=== PATIENT | male | born 1975 | race Caucasian/White ===

== ENCOUNTER 2020-01-26 14:51 | Inpatient (IN) | payer OTHER ==
--- NOTE | 2020-01-26 15:44 | BHS.RME ---
Substance Use & Tx History - Substance Use History Alcohol Substance amount: 1 liter Frequency of use: Daily Substance route: Oral Date of Last Use: 01/26/20 - Last Treatment Date of last treatment: About 10 years ago Where was last treatment: Detox Physical/Psych/Mental Status - Behavior General Behavior: Increased activity (restlessness, agitation) Eye Contact: Normal Other Behaviors: Mannerisms - Cooperativeness Cooperativeness: Cooperative - Thinking Thought Processes: Tight Thought content: Future oriented - Physical Health Problems Is patient presently having any pain?: Yes Does patient presently have any injuries (include location): Yes (broken tibia 2 weeks ago) Does patient currently have a fever: No CIWA Nausea/Vomitin-Mild Nausea/No Vomiting Muscle Tremors: 2 Anxiety: 3 Agitation: 3 Paroxysmal Sweats: 2 Orientation: 0-Oriented Tacttile Disturbances: 2-Mild Itch/Numbness/Burn Auditory Disturbances: 2-Mild Harshness/Frighten Visual Disturbances: 0-None Headache: 2-Mild CIWA-Ar Total Score: 17
--- NOTE | 2020-01-26 15:49 | HP ---
CIWA Score Nausea/Vomitin-Mild Nausea/No Vomiting Muscle Tremors: 2 Anxiety: 3 Agitation: 3 Paroxysmal Sweats: 2 Orientation: 0-Oriented Tacttile Disturbances: 2-Mild Itch/Numbness/Burn Auditory Disturbances: 2-Mild Harshness/Frighten Visual Disturbances: 0-None Headache: 2-Mild CIWA-Ar Total Score: 17 - Admission Criteria OASAS Guidelines: Admission for Medically Managed Detox: Requires at least one of the followin. CIWA greater than 12 2. Seizures within the past 24 hours 3. Delirium tremens within the past 24 hours 4. Hallucinations within the past 24 hours 5. Acute intervention needed for co occurring medical disorder 6. Acute intervention needed for co occurring psychiatric disorder 7. Severe withdrawal that cannot be handled at a lower level of care (continued vomiting, continued diarrhea, abnormal vital signs) requiring intravenous medication and/or fluids 8. Patient presents the following: CIWA greater than 12 Admission Criteria Met: Admission criteria met Admission ROS S - [facility] Chief Complaint: I am withdrawing from alcohol Allergies/Adverse Reactions: Allergies Allergy/AdvReac Type Severity Reaction Status Date / Time No Known Allergies Allergy Verified 01/26/20 17:57 History of Present Illness: 44 year old man presents for detox from alcohol. He reports last detox was about 10 years ago. He recently fell and broke his fibula, he has a soft cast on, he reports NWB status but he came in walking and bearing weight because he left his crutches at home. He was supposed to follow up with ortho at [facility] yesterday but he missed the appointment He has moderate pain in the limb Exam Limitations: No Limitations - Ebola screening Have you traveled outside of the country in the last 21 days: No Have you had contact with anyone from an Ebola affected area: No Have you been sick,other than usual withdrawal symptoms: No Do you have a fever: No - Review of Systems Constitutional: No Symptoms Reported EENT: reports: No Symptoms Reported Respiratory: reports: No Symptoms reported Cardiac: reports: No Symptoms Reported GI: reports: Nausea, Abdominal cramping : reports: No Symptoms Reported Musculoskeletal: reports: Back Pain, Joint Pain, Muscle Weakness Integumentary: reports: Rash Neuro: reports: Headache, Numbness, Weakness Endocrine: reports: No Symptoms Reported Hematology: reports: No Symptoms Reported Psychiatric: reports: No Sypmtoms Reported Other Systems: Reviewed and Negative Patient History - Patient Medical History Hx Anemia: No Hx Asthma: No Hx Chronic Obstructive Pulmonary Disease (COPD): No Hx Cancer: No Hx Cardiac Disorders: No Hx Congestive Heart Failure: No Hx Hypertension: No Hx Hypercholesterolemia: No Hx Pacemaker: No HX Cerebrovascular Accident: No Hx Seizures: Yes (20 years ago) Hx Dementia: No Hx Diabetes: No Hx Gastrointestinal Disorders: No Hx Liver Disease: No Hx Genitourinary Disorders: No Hx Sexually Transmitted Disorders: No Hx Renal Disease (ESRD): No Hx Thyroid Disease: No Hx Human Immunodeficiency Virus (HIV): No Hx Hepatitis C: No Hx Depression: No Hx Suicide Attempt: No Hx Bipolar Disorder: No Hx Schizophrenia: No - Patient Surgical History Past Surgical History: Yes Hx Orthopedic Surgery: Yes (LLE 2 weeks ago) Anesthesia Reaction: No - PPD History Previous Implant?: No Implanted On Prior [facility] Admission?: No PPD to be Administered?: Yes - Smoking Cessation Smoking history: Current every day smoker Have you smoked in the past 12 months: Yes Aproximately how many cigarettes per day: 2 Cigars Per Day: 0 Hx Chewing Tobacco Use: No Initiated information on smoking cessation: Yes 'Breaking Loose' booklet given: 01/26/20 - Substances abused Alcohol Substance route: Oral Frequency: Daily Amount used: 1 liter of vodka Age of first use: 11 Date of last use: 01/26/20 Heroin Substance route: Inhalation Amount used: 2-3 bags/day Age of first use: 34 Date of last use: 01/24/20 Admission Physical Exam BHS - Physical General Appearance: Yes: Disheveled, Alcohol on Breath, Irritable, Sweating HEENTM: Yes: Normocephalic, MAGGIE, Pharynx Normal Respiratory: Yes: Chest Non-Tender, Lungs Clear, Normal Breath Sounds, No Respiratory Distress, No Accessory Muscle Use Neck: Yes: No masses,lesions,Nodules, Supple Breast: Yes: Breast Exam Deferred Cardiology: Yes: Tachycardia Abdominal: Yes: Normal Bowel Sounds Genitourinary: Yes: Within Normal Limits Back: Yes: Normal Inspection Musculoskeletal: Yes: Back pain, Joint Stiffness, Muscle weakness Extremities: Yes: Other (tibia fx) Neurological: Yes: Alert, Normal Response Integumentary: Yes: Rash (diffuse on trunk) - Diagnostic (1) Alcohol dependence, uncomplicated Current Visit: Yes Status: Acute (2) Left fibular fracture Current Visit: Yes Status: Acute Cleared for Admission [facility] - Detox or Rehab [facility] Level of Care: Medically Managed Detox Regimen/Protocol: Librium Claeared for Rehab Admission: No Breathalyzer - Breathalyzer Breathalyzer: 0.199 Urine Drug Screen - Test Device Lot number: [id number] Expiration date: 09/11/21 - Control Is test valid?: Yes - Results Drug screen NEGATIVE: Yes Inpatient Rehab Admission - Rehab Decision to Admit Inpatient rehab admission?: No
[2020-01-26] MEDS ORDERED: METHOCARBAMOL 500 MG TABLET PO PRN (16:09)
[2020-01-26] MEDS ORDERED: MAGNESIUM CITRATE 300 ML BOTTLE PO PRN (16:09)
[2020-01-26] MEDS ORDERED: BISMUTH SUBSALICYLATE 524 MG/30 ML UD PO PRN (16:09)
[2020-01-26] MEDS ORDERED: ACETAMINOPHEN 325 MG TABLET (FP) PO PRN ×2 (16:09)
[2020-01-26] MEDS ORDERED: NICOTINE POLACRILEX 2 MG GUM BUC PRN (16:09)
[2020-01-26] MEDS ORDERED: ONDANSETRON *ODT* 4 MG TABLET SL ONE (16:09)
[2020-01-26] MEDS ORDERED: MAGNESIUM HYDROX 2400MG/30ML ORAL SUSPENSION 30 ML CUP PO PRN (16:09)
[2020-01-26] MEDS ORDERED: chlordiazePOXIDE HCL 10 MG CAPSULE PO PRN (16:09)
[2020-01-26] MEDS ORDERED: MENTHOL/PHENOL 1 EACH UD MM PRN (16:09)
[2020-01-26] MEDS ORDERED: MAG HYDROX/AL HYDROX/SIMETH 30 ML UNIT-DOSE CUP PO PRN (16:09)
[2020-01-26] MEDS ORDERED: IBUPROFEN 400 MG TABLET (FP) PO PRN (16:09)
--- NOTE | 2020-01-26 16:57 | PN ---
[facility] Progress Note Note: Patient presented for alcohol detox, while waiting to go to the unit, he had several episodes of starring spells and tremors, he did not lose consciousness, but he kept going in and out. Patient has a soft cast on the left leg which he reports was placed 2 weeks ago when he broke his fibula, was supposed to follow up at [facility] yesterday but he missed his appointment. PE VS BP 123/67 HR 133 RR 20 Mental status: He is alert and responsive but occasionally requires stimulation to respond Lungs clear in all mary CVS: Tachycardia, irregular Skin: Diffuse rash to whole body Ext: LLE soft cast A/P Alcohol intoxication with seizure-ED for further Tachycardia-EKG done, transfer to ED for further evaluation
[2020-01-26 17:10] VITALS: BP 123/67; PULSE 133; TEMP 97.3; BMI 36.4
[2020-01-26] MEDS ORDERED: hydrOXYzine PAMOATE 25 MG CAPSULE (FP) PO SCH (18:00)
[2020-01-26] MEDS ORDERED: chlordiazePOXIDE HCL 25 MG CAPSULE PO SCH (21:00)
[2020-01-26] MEDS ORDERED: THIAMINE HCL 100 MG TABLET (FP) PO SCH (22:00)
[2020-01-26] MEDS ORDERED: COLLOIDAL OATMEAL 1 EACH PACKET TP SCH (22:00)
[2020-01-26] MEDS ORDERED: MELATONIN 5 MG TABLETS PO SCH (22:00)
[2020-01-27] MEDS ORDERED: PRENATAL VITAMINS W/ FOLIC ACID TABLET (FP) PO SCH (10:00)
--- NOTE | 2020-01-27 12:20 | DS ---
[facility] Detox Discharge Summary Admission Date: 01/26/20 Discharge Date: 01/27/20 - History Present History: Alcohol Dependence Additional Comments: 44 years old male was admitted on 01/26/20 for alcohol withdrawal sx management treating with librium detox regiment transferred to ER for seizure admitted to telemetry for tachycardia Vital Signs - 24 hr 01/26/20 16:50 Temperature 97.3 F L Pulse Rate 133 H Respiratory 20 Rate Blood Pressure 123/67 Pertinent Past History: time for discharge 44 minutes based on chart reviewed blog writer has not seen nor evaluated mr arteaga - Physical Exam Results Vital Signs: Vital Signs Temperature 97.3 F L 01/26/20 16:50 Pulse Rate 133 H 01/26/20 16:50 Respiratory Rate 20 01/26/20 16:50 Blood Pressure 123/67 01/26/20 16:50 O2 Sat by Pulse Oximetry (%) Pertinent Admission Physical Exam Findings: alcohol withdrawal - Treatment Hospital Course: Detox Protocol Followed Patient has Accepted a Rehab Referral to: telemetry unit - Medication Discharge Medications: Ambulatory Orders NK [No Known Home Medication] 01/26/20 - Diagnosis (1) Alcohol dependence, uncomplicated Status: Acute (2) Seizure Status: Acute - AMA Did Patient Leave Against Medical Advice: No
[2020-01-28] MEDS ORDERED: chlordiazePOXIDE 5 MG CAPSULE PO SCH (05:00)
--- NOTE | 2020-01-28 18:28 | EKG ---
Test Reason : Blood Pressure : / mmHG Vent. Rate : 119 BPM Atrial Rate : 119 BPM P-R Int : 154 ms QRS Dur : 098 ms QT Int : 320 ms P-R-T Axes : 072 040 034 degrees QTc Int : 450 ms SINUS TACHYCARDIA POSSIBLE LEFT ATRIAL ENLARGEMENT INCOMPLETE RIGHT BUNDLE BRANCH BLOCK INFERIOR INFARCT , AGE UNDETERMINED ABNORMAL ECG NO PREVIOUS ECGS AVAILABLE Confirmed by LOU CHAO MD ([id number]) on 01/28/2020 6:27:39 PM Referred By: Confirmed By:LOU CHAO MD
[2020-01-29] MEDS ORDERED: chlordiazePOXIDE HCL 10 MG CAPSULE PO PRN
[2020-01-29] MEDS ORDERED: chlordiazePOXIDE HCL 10 MG CAPSULE PO SCH (05:00)
[2020-01-30] MEDS ORDERED: chlordiazePOXIDE HCL 10 MG CAPSULE PO ONE (05:00)
== END 2020-01-27 08:20 | disposition short-term general hospital (02) | DRG 773 ==
LOC: YASAS 14:51 → Y3N 17:18
PROVIDERS: ADMIT Allergy & Immunology; ATTEND Allergy & Immunology
PROC: HZ2ZZZZ Detoxification Services for Substance Abuse Treatment (ICD-10-PCS; principal; 2020-01-26)
DX: F10.230 Alcohol dependence with withdrawal, uncomplicated (principal); F11.20 Opioid dependence, uncomplicated; F17.210 Nicotine dependence, cigarettes, uncomplicated; R00.0 Tachycardia, unspecified; R56.9 Unspecified convulsions; R21 Rash and other nonspecific skin eruption; M54.89 Other dorsalgia; S82.402D Unspecified fracture of shaft of left fibula, subsequent encounter for closed fracture with routine healing; W19.XXXD Unspecified fall, subsequent encounter
CPT/HCPCS: 93005; 93010

== ENCOUNTER 2020-01-26 17:09 | Inpatient (IN) | payer OTHER ==
[2020-01-26 17:57] VITALS: BMI 36.6
[2020-01-26] MEDS ORDERED: diazePAM CARPU-JECT 10 MG/2 ML DISP.SYRIN IVPUSH ONE ×4 (17:59→22:33)
[2020-01-26] MEDS ORDERED: diazePAM CARPU-JECT 10 MG/2 ML DISP.SYRIN ONE ×2 (19:24→20:52)
[2020-01-26 19:35] LABS: BASO % 0.7 % (0-2.0); EOS % 0.4 % (0-4.5); HEMATOCRIT 43.6 % (35.4-49); HEMOGLOBIN 14.7 GM/dL (11.7-16.9); LYMPH % 24.5 % (8-40); MCH 30.5 pg (25.7-33.7); MCHC 33.8 g/dl (32.0-35.9); MEAN CELL VOLUME 90.3 fl (80-96); MEAN PLT VOLUME 7.5 fl (7.5-11.1); MONO % 7.6 % (3.8-10.2); NEUT % 66.8 % (42.8-82.8); PLATELET COUNT 343 K/MM3 (134-434); RBC 4.83 M/mm3 (4.00-5.60); RDW 13.4 % (11.9-15.9); WHITE BLOOD COUNT 10.3 K/mm3 (4.0-10.0)
[2020-01-26 19:58] LABS: ALBUMIN 3.7 g/dl (3.4-5.0); ALK PHOS 78 U/L (45-117); ANION GAP 10 MMOL/L (8-16); BILIRUBIN,TOTAL 0.4 mg/dL (0.2-1); BLOOD UREA NITROGEN 9.6 mg/dL (7-18); CALCIUM 8.6 mg/dL (8.5-10.1); CHLORIDE 105 mmol/L (98-107); CO2 25 mmol/L (21-32); CREATININE 0.9 mg/dL (0.55-1.3); GLUCOSE,RANDOM 87 mg/dL (74-106); SGOT/AST 86 U/L (15-37); SGPT/ALT 104 U/L (13-61); SODIUM 140 mmol/L (136-145); TOT PROT 7.2 g/dl (6.4-8.2)
[2020-01-26 20:35] LABS: URINE APPEARANCE CLEAR; URINE BILIRUBIN NEGATIVE (NEGATIVE); URINE COLOR YELLOW; URINE GLUCOSE (UA) TRACE (NEGATIVE); URINE KETONE NEGATIVE (NEGATIVE); URINE LEUK ESTERASE NEGATIVE (NEGATIVE); URINE NITRITE NEGATIVE (NEGATIVE); URINE PROTEIN NEGATIVE (NEGATIVE); URINE UROBILINOGEN 0.2 mg/dL (0.2-1.0)
[2020-01-26 20:45] LABS: COCAINE, UR NEGATIVE ng/ml (CUTOFF=300); METHADONE, UR NEGATIVE ng/ml (CUTOFF=300); OPIATES, URI NEGATIVE ng/ml (CUTOFF=300); PHENCYCLIDINE,URINE NEGATIVE ng/ml (CUTOFF=25); URINE AMPHETAMINES NEGATIVE ng/ml (CUTOFF=500); URINE BARBITURATES NEGATIVE ng/ml (CUTOFF=200); URINE BENZODIAZEPINES NEGATIVE ng/ml (CUTOFF=200)
--- NOTE | 2020-01-26 20:47 | PDOC ---
History of Present Illness - General Chief Complaint: Seizure Stated Complaint: SEIZURE Time Seen by Provider: 01/26/20 18:04 - History of Present Illness Initial Comments: 01/26/20 20:35 44 [facility]. Patient checked in on [facility], had a seizure episode. When the EMS arrived, he was not seizured anymore. Patient admitted to drink this morning, and yesterday heavily. Had a hx of withdraw and seizure. Admitted to use cocaine 3 days ago. Patient denies F/C/N/V/ chest pain, abdominal pain. He denies fall/trauma/LOC. A few weeks ago, he buckled his knee, had a fall, and broke his food. Went to the [facility] ED, and had a cast on his left foot. PCP: none ALlergy: none Med: none PSH: none PMH: alcohol dependent. ROS GENERAL/CONSTITUTIONAL: No fever or chills. No weakness. HEAD, EYES, EARS, NOSE AND THROAT: No change in vision. No ear pain or discharge. No sore throat. CARDIOVASCULAR: No chest pain or shortness of breath RESPIRATORY: No cough, wheezing, or hemoptysis. GASTROINTESTINAL: No nausea, vomiting, diarrhea or constipation. GENITOURINARY: No dysuria, frequency, or change in urination. MUSCULOSKELETAL: No joint or muscle swelling or pain. No neck or back pain. SKIN: No rash NEUROLOGIC: No headache, vertigo, loss of consciousness, or change in strength/sensation. ENDOCRINE: No increased thirst. No abnormal weight change HEMATOLOGIC/LYMPHATIC: No anemia, easy bleeding, or history of blood clots. ALLERGIC/IMMUNOLOGIC: No hives or skin allergy. PE. tachycardic of 124 GENERAL: Awake, alert, and fully oriented, in no acute distress, obese. HEAD: No signs of trauma, normocephalic, atraumatic EYES: PERRLA, EOMI, sclera anicteric, conjunctiva clear ENT: Auricles normal inspection, hearing grossly normal, nares patent, oropharynx clear without exudates. Moist mucosa, tongue fasciculation. NECK: Normal ROM, supple, no lymphadenopathy, JVD, or masses LUNGS: No distress, speaks full sentences, clear to auscultation bilaterally HEART: Regular rate and rhythm, normal S1 and S2, no murmurs, rubs or gallops, peripheral pulses normal and equal bilaterally. ABDOMEN: Soft, nontender,protrubing but nondistended. normoactive bowel sounds. No guarding, no rebound. No masses EXTREMITIES : Normal inspection, Normal range of motion, no edema. No clubbing or cyanosis. had a left wet cast on . extremiites trembling. NEUROLOGICAL: Cranial nerves II through XII grossly intact. Normal speech, normal gait, no focal sensorimotor deficits SKIN: Warm, Dry, normal turgor, no rashes or lesions noted MDM concerning for alcohol withdraw ( tongue fasciculation, trembling) W/U: blood work , cbc, cmp. ekg. - EKG: vent rate 119, QTc 450, sinus tachycardia, Twave inversion on III, incomplete RBBB, not concerning for [place]. TX: - IV diazepam (valium )5, diazepam (valium) 10. zofran ( QTc 450), 20 Valium. - CAT scan of the head, and neck. - reassess -CBC normal , CMP showed elevated liver enzymes, Utox is negative, alcohol level 138. -AFter 20 valium, patient still had withdraw ( nausea, tachycardic, trembling)----> uncontrolled EthOh withdraw---> consult ICU attending---> he came down to assess---> decline----> mbmd sent to hospitalist---> plan to admit to telemetry. 01/26/20 22:00 01/26/20 22:11 01/26/20 22:15 01/26/20 22:16 01/26/20 23:24 Past History - Medical History Allergies/Adverse Reactions: Allergies Allergy/AdvReac Type Severity Reaction Status Date / Time No Known Allergies Allergy Verified 01/26/20 17:57 Home Medications: Ambulatory Orders NK [No Known Home Medication] 01/26/20 Anemia: No Asthma: No Cancer: No Cardiac Disorders: No CVA: No COPD: No CHF: No Dementia: No Diabetes: No GI Disorders: No Disorders: No HTN: No Hypercholesterolemia: No Liver Disease: No Seizures: Yes (20 years ago) Thyroid Disease: No - Surgical History Orthopedic Surgery: Yes (LLE 2 weeks ago) - Psycho-Social/Smoking History Smoking History: Current every day smoker Have you smoked in the past 12 months: Yes Number of Cigarettes Smoked Daily: 2 Cigars Per Day: 0 Information on smoking cessation initiated: No - Substance Abuse Hx (Audit-C & DAST Scrn) How often the patient has a drink containing alcohol: 4 0r more times/wk Number of drinks the patient has on a typical day: 10 or more How often the patient has six or more drinks on one occasion: Daily or almost daily Score: In Men: 4 or > Positive; In Women: 3 or > Positive: 12 Screen Result (Pos requires Nsg. Audit-10AR): Positive In the last yr the pt used illegal drug/Rx for NonMed reason: Yes Score: Yes response is considered Positive: 1 Screen Result (Positive result requires Nsg. DAST-10): Positive *Physical Exam - Vital Signs Last Vital Signs Temp Pulse Resp BP Pulse Ox 98.4 F 124 H 20 141/83 99 01/26/20 17:10 01/26/20 19:50 01/26/20 19:50 01/26/20 19:50 01/26/20 19:50 ED Treatment Course - LABORATORY CBC & Chemistry Diagram: 01/26/20 19:02 01/26/20 19:02 - ADDITIONAL ORDERS Additional order review: Laboratory Results 01/26/20 19:02 Sodium 140 Potassium 4.0 Chloride 105 Carbon Dioxide 25 Anion Gap 10 BUN 9.6 Creatinine 0.9 Est GFR (CKD-EPI)AfAm 119.13 Est GFR (CKD-EPI)NonAf 102.79 Random Glucose 87 Calcium 8.6 Total Bilirubin 0.4 AST 86 H ALT 104 H Alkaline Phosphatase 78 Creatine Kinase 383 H Creatine Kinase Index 1.2 CK-MB (CK-2) 4.8 H Troponin I < 0.02 Total Protein 7.2 Albumin 3.7 Alcohol, Quantitative 135.6 H 01/26/20 19:02 RBC 4.83 MCV 90.3 MCHC 33.8 RDW 13.4 MPV 7.5 Neutrophils % 66.8 Lymphocytes % 24.5 Monocytes % 7.6 Eosinophils % 0.4 Basophils % 0.7 - Medications Given in the ED: ED Medications Discontinued Medications Generic Name Dose Route Start Last Admin Trade Name Freq PRN Reason Stop Dose Admin Diazepam 5 mg 01/26/20 17:59 01/26/20 19:36 Valium Injection - IVPUSH 01/26/20 18:00 5 mg ONCE ONE Administration Diazepam 10 mg 01/26/20 19:03 01/26/20 19:38 Valium Injection - IVPUSH 01/26/20 19:04 Not Given ONCE ONE Discharge - Discharge Information Problems reviewed: Yes Clinical Impression/Diagnosis: Alcohol dependence, uncomplicated, Seizure Condition: Fair - Admission Yes - Follow up/Referral - Patient Discharge Instructions - Post Discharge Activity
[2020-01-26] MEDS ORDERED: ONDANSETRON 4 MG/2 ML VIAL IVPUSH ONE (21:28)
--- NOTE | 2020-01-26 21:46 | PDOC ---
Documentation entered by Karla Waddell SCRIBE, acting as scribe for Gabriela Royal MD. Gabriela Royal MD: This documentation has been prepared by the Bairon erazo Sydney, SCRIBE, under my direction and personally reviewed by me in its entirety. I confirm that the documentation accurately reflects all work, treatment, procedures, and medical decision making performed by me. Attending Attestation - Resident Resident Name: FayJusto - ED Attending Attestation I have performed the following: I have examined & evaluated the patient, The case was reviewed & discussed with the resident, I agree w/resident's findings & plan, Exceptions are as noted - HPI HPI: 01/26/20 20:58 Patient is a 44 male with a significant past medical history of EtOH abuse, seizures who presents to the ED BIBA s/p seizure. Patient endorses he had been drinking heavily yesterday and when he checked into [facility] today, he had a seizure. Patient also reported cocaine use three days ago. Pt states he has had etoh withdrawal seizures in the past. Reports fall 3 weeks ago at which point he broke his left foot and has a cast on. Denies fall since. Denies fever, chills, headaches, focal weakness/numbness, chest pain, SOB, abd ominal pain, nausea, vomiting, or urinary changes. Allergies: NKDA - Physicial Exam PE: 01/26/20 21:39 Agree with resident exam - Medical Decision Making 01/26/20 21:39 44yo M hx etoh abuse c/b withdrawal presents to the ED with seizure at [facility] Vitals here remarkable for tachycardia, mildly elevated BP. O2 sat 99% RA Exam with agitation, tongue fasiculations, b/l UE tremors. Pt is cooperative Clinical picture consistent with etoh withdrawal No CP or SOB to suggest PE as cause of tachycardia. No known RF but pt is poor historian Plan for IV valium with frequent clinical reassessment Pt on cardiac monitoring Will obtain CTH/CT c-spine given history of falls CXR clear on my read Anticipate admission 01/26/20 23:00 CTH with no acute path per IOC read Pt with persistent tachycardia despite 5->10->10->20mg of IV valium Given poor response to escalating doses of IV valium, ICU OPEN WINDER Franki was consulted On Franki's arrival, HR normalized to 99 with significant improvement in agitation, tremors As such, recommends tele monitoring but will continue to follow Plan to admit to hospitalist for further mgmt 01/26/20 23:50 Case discussed with hospitalist, pt admitted to Dr. Cooper's service Case discussed in detail with admitting physician including history, physical exam and ancillary studies. Admitting physician has assumed care for the patient, will follow all pending diagnostics and will complete the evaluation and treatment. Heart Score/ECG Review #1 01/26/20 21:46 EKG read and int by me: Sinus tachycardia, rate 119, incomplete RBBB, isolated TWI in lead III, no SANTIAGO Discharge - Discharge Information Problems reviewed: Yes Clinical Impression/Diagnosis: Seizure, Alcohol withdrawal, Tachycardia Condition: Fair - Follow up/Referral - Patient Discharge Instructions - Post Discharge Activity
[2020-01-26] MEDS ORDERED: diazePAM 5 MG TABLET ONE (22:35)
--- NOTE | 2020-01-27 00:28 | PN ---
Teaching Attending Note Name of Resident: Enrique Martinez ATTENDING PHYSICIAN STATEMENT I saw and evaluated the patient. I reviewed the resident's note and discussed the case with the resident. I agree with the resident's findings and plan as documented. SUBJECTIVE: Patient is a 44 man with a PMH of Polysubstance abuse (Alcohol, Heroin, Cocaine) , Tobacco use, Seizures and Left tibia fracture (2 weeks ago) who [facility] a seizure. Reports he had been drinking heavily yesterday and when he checked [facility] today, he had a seizure. Patient also reported cocaine use three days ago. Injects and snorts heroin. States he has had alcohol withdrawal seizures in the past. Reports fall 3 weeks ago at which point he broke his left leg and has a cast on. Missed his follow-up appointment with Ortho in [place] yesterday. Reports feeling feverish in the past two days, vomited once and had two loose stools. Patient denies chest pain, shortness of breath, abdominal pain, headache, palpitations, dizziness, constipation, dysuria, frequency, urgency, melena, hematochezia or hematuria. No sick contacts or recent travels. Patient has a family history of [place] in father and melanoma in mother. Was agitated and tremulous on arrival and got multiple doses of IV Diazepam. OBJECTIVE: Somnolent but arousable Vital Signs Period Temp Pulse Resp BP Sys/[place] Pulse Ox Last 24 Hr 98.4 F 84-124 18-20 140-155/77-97 96-99 HEENT: No Jaundice, eye redness or discharge, PERRLA, EOMI. Normocephalic, atraumatic. External ears are normal and hearing is grossly intact. No nasal discharge. Neck: Supple, nontender. No palpable adenopathy or thyromegaly. No JVD Chest: Good effort. Clear to auscultation and percussion. Heart: Regular. No S3, rub or murmur Abdomen: Not distended, soft, nontender and no HSM. No rebound or guarding. Normal bowel sounds. Ext: Peripheral pulses intact. No leg edema. Left leg cast - distal motor and sensory function intact. Skin: Warm and dry. No petechiae, rash or ecchymosis. Neuro: Somnolent but arousable. Tongue fasciculations. Oriented x3. CN 2-12 grossly intact. Sensation grossly intact in all four extremities and DTR are symmetric. Psych: Appropriate mood and affect. Good insight. Home Medications Medication Instructions Recorded NK [No Known Home Medication] 01/26/20 Abnormal Lab Results 01/26/20 01/26/20 19:02 19:02 WBC 10.3 H AST 86 H ALT 104 H Creatine Kinase 383 H CK-MB (CK-2) 4.8 H Alcohol, Quantitative 135.6 H Current Medications Generic Name Dose Route Start Last Admin Trade Name Freq PRN Reason Stop Dose Admin Chlordiazepoxide HCl 50 mg 01/27/20 05:00 Librium - PO 01/27/20 23:01 [id number] FREDY Chlordiazepoxide HCl 25 mg 01/28/20 05:00 Librium - PO 01/28/20 23:01 [id number] FREDY Chlordiazepoxide HCl 25 mg 01/27/20 01:14 Librium - PO 01/28/20 23:59 Q4H PRN WITHDRAWAL(CONT SUBST) Chlordiazepoxide HCl 10 mg 01/29/20 05:00 Librium - PO 01/29/20 23:01 [id number] FREDY Chlordiazepoxide HCl 10 mg 01/30/20 05:00 Librium - PO 01/30/20 17:01 Q12H FREDY Chlordiazepoxide HCl 10 mg 01/29/20 00:00 Librium - PO 01/30/20 00:00 Q4H PRN WITHDRAWAL(CONT SUBST) Chlordiazepoxide HCl 10 mg 01/31/20 05:00 Librium - PO 01/31/20 05:01 ONCE@0500 ONE Enoxaparin Sodium 40 mg 01/27/20 10:00 Lovenox - SQ DAILY [facility] Folic Acid 1 mg 01/27/20 10:00 Folic Acid - PO DAILY [facility] Sodium Chloride 1,000 mls @ 75 mls/hr 01/27/20 01:15 Normal Saline - IV ASDIR FREDY Folic Acid 1 mg/ Thiamine HCl 1,000 mls @ 125 mls/hr 01/27/20 01:15 100 mg/ Multivitamins/Minerals IVPB 01/27/20 09:14 10 ml/ Sodium Chloride ONCE ONE Thiamine HCl 100 mg 01/27/20 10:00 Vitamin B1 - PO DAILY [facility] ASSESSMENT AND PLAN: 1. Alcohol withdrawal seizure - No evidence of acute intracranial pathology on noncontrast head CT scan but shows right frontal lipoma. C-spine CT did not show any fracture or subluxation, but showed possible RUL infiltrate. CXR shows cardiomegaly with increased interstitial markings most marked in the RLL. Will admit to telemetry, monitor for drug withdrawal, implement CIWA Librium/Ativan alcohol withdrawal protocol and do neurochecks. Implement seizure, fall and aspiration precautions. Treat with IV Banana bag, thiamine and folic acid. Monitor and replete electrolytes (Ca,Mg,K,P). Counseled patient about abstaining from alcohol/illicit drugs. Will consult imcu specialist and refer to alcohol/drug detox upon discharge. Mild elevation in transaminases likely due to alcohol - will use librium and ativan and monitor LFTs. Will hydrate with IV NS after banana bag to address rhadomyolysis. Mild leukocytosis is likely due to stress - he is afebrile and no infiltrate on CXR. Will not give antibiotics at this time. Viral testing for COVID-19 ordered and patient placed on airborne, droplet and contact isolation. EKG shows sinus tachycardia at 119/minute and QTc 450, IRBBB, T wave inversion in III with no ischemic ST changes. Initial troponin is negative. Will avoid drugs that may prolong QTc. Will get xray of left leg and consult Ortho. 2. Tobacco Use Counseled on risks associated with tobacco use. We will provide patient all the necessary assistance to facilitate smoking cessation and prescribe Nicotine patch. 3. Obesity Counseled on the risks associated with obesity. Will provide patient all the necessary assistance, counseling and positive reinforcement to facilitate weight loss. Consult rn manager. 4. DVT prophylaxis - Lovenox 40 mg SQ q 24 hours. 5. Advance directives - Full code
[2020-01-27] MEDS ORDERED: chlordiazePOXIDE HCL 25 MG CAPSULE PO PRN (01:14)
[2020-01-27] MEDS ORDERED: FOLIC ACID INJECTION - 1 MG, THIAMINE HCL 100 MG, MULTIVIT INJECTION ADULT 10 ML in SOD... IVPB ONE (01:15)
[2020-01-27] MEDS ORDERED: diazePAM CARPU-JECT 10 MG/2 ML DISP.SYRIN IVPUSH ONE (01:26)
[2020-01-27] MEDS ORDERED: diazePAM CARPU-JECT 10 MG/2 ML DISP.SYRIN ONE (01:38)
[2020-01-27] MEDS ORDERED: chlordiazePOXIDE HCL 25 MG CAPSULE ONE (04:07)
--- NOTE | 2020-01-27 04:10 | HP ---
CHIEF COMPLAINT: Seizure after alcohol withdrawal PCP: HISTORY OF PRESENT ILLNESS: This is a 44 year old male with PMH of polysubstance abuse. He presented to [facility] this morning for alcohol detox. While seated, he states that he "dozed off" and woke up a few minutes later, and was told that he had a seizure and was being transferred to [facility]. As per [facility] notes, "he had several episodes of starring spells and tremors, he did not lose consciousness, but he kept going in and out." Pt denies any aura, prodromal symptoms, confusion, or tongue biting. He states he has been dirnking heavily, 1 pint of vodka daily and last drink was 1 pint this morning. Reports history of a seizure 15 years ago during alcohol withdrawal. He endorses vomiting x1, diarrhea x2, tremors, agitation, fevers since last night. He also states that he broke his L fibula after he fell down when standing from a seated position. He had a cast placed at [facility], and was supposed to have it removed today. He lives with 2 friends, is not in touch with family, is unemployed but with Medicaid, uses 5-6 bags of heroin a day (injects as well as sniffs) with last use a few days ago, uses cocaine intermittently, and smokes 1/2 ppd. Family history is poitive for ND in father at 76, and melanoma in mother. ER course was notable for: (1) Valium 5+10+20mg (2) Zofran 4mg (3) EKG with old RBBB Recent Travel: denies PAST MEDICAL HISTORY: See HPI PAST SURGICAL HISTORY: R leg 2004 L leg 2012 Social History: See HPI Allergies No Known Allergies Allergy (Verified 01/26/20 17:57) HOME MEDICATIONS: Home Medications Medication Instructions Recorded NK [No Known Home Medication] 01/26/20 REVIEW OF SYSTEMS CONSTITUTIONAL: agitation Absent: fever, chills, diaphoresis, generalized weakness, malaise, loss of appetite, weight change HEENT: Absent: rhinorrhea, nasal congestion, throat pain, throat swelling, difficulty swallowing, mouth swelling, ear pain, eye pain, visual changes CARDIOVASCULAR: Absent: chest pain, syncope, palpitations, irregular heart rate, lightheadedness, peripheral edema RESPIRATORY: Absent: cough, shortness of breath, dyspnea with exertion, orthopnea, wheezing, stridor, hemoptysis GASTROINTESTINAL: nausea Absent: abdominal pain, abdominal distension, nausea, vomiting, diarrhea, constipation, melena, hematochezia GENITOURINARY: Absent: dysuria, frequency, urgency, hesitancy, hematuria, flank pain, genital pain MUSCULOSKELETAL: Absent: myalgia, arthralgia, joint swelling, back pain, neck pain SKIN: Absent: rash, itching, pallor HEMATOLOGIC/IMMUNOLOGIC: Absent: easy bleeding, easy bruising, lymphadenopathy, frequent infections ENDOCRINE: Absent: unexplained weight gain, unexplained weight loss, heat intolerance, cold intolerance NEUROLOGIC: tremors Absent: headache, focal weakness or paresthesias, dizziness, unsteady gait, seizure, mental status changes, bladder or bowel incontinence PSYCHIATRIC: Absent: anxiety, depression, suicidal or homicidal ideation, hallucinations. PHYSICAL EXAMINATION Vital Signs - 24 hr 01/26/20 01/26/20 01/26/20 17:10 19:50 21:41 Temperature 98.4 F Pulse Rate 98 H Pulse Rate [ 124 H 84 Apical] Respiratory 19 20 20 Rate Blood Pressure 140/79 Blood Pressure 141/83 155/77 [Right Arm] O2 Sat by Pulse 98 99 99 Oximetry (%) 01/27/20 02:18 Temperature Pulse Rate Pulse Rate [ 85 Apical] Respiratory 18 Rate Blood Pressure Blood Pressure 152/97 [Right Arm] O2 Sat by Pulse 96 Oximetry (%) CIWA 8 COWS 7 GENERAL: AOx3 HEAD: Normal with no signs of trauma. EYES: Pupils equal, round and reactive to light, extraocular movements intact, sclera anicteric, conjunctiva clear. No lid lag. EARS, NOSE, THROAT: Ears normal, nares patent, oropharynx clear without exudates. Moist mucous membranes. NECK: Normal range of motion, supple without lymphadenopathy, JVD, or masses. LUNGS: Breath sounds equal, clear to auscultation bilaterally. No wheezes, and no crackles. No accessory muscle use. HEART: Regular rate and rhythm, normal S1 and S2 without murmur, rub or gallop. ABDOMEN: Soft, nontender, not distended, normoactive bowel sounds, no guarding, no rebound, no masses. No hepatomegaly or splenomegaly. MUSCULOSKELETAL: Normal range of motion at all joints. No bony deformities or tenderness. No CVA tenderness. UPPER EXTREMITIES: 2+ pulses, warm, well-perfused. No cyanosis. No clubbing. No peripheral edema. LOWER EXTREMITIES: 2+ pulses, LLE has cast, motor function and sensation in toes intact NEUROLOGICAL: Cranial nerves II-XII intact. Normal speech. Normal gait. PSYCHIATRIC: Cooperative. Good eye contact. Appropriate mood and affect. SKIN: Warm, dry, normal turgor, no rashes or lesions noted, normal capillary refill. Laboratory Results - last 24 hr 01/26/20 01/26/20 01/26/20 19:02 19:02 20:08 WBC 10.3 H RBC 4.83 Hgb 14.7 Hct 43.6 MCV 90.3 MCH 30.5 MCHC 33.8 RDW 13.4 Plt Count 343 MPV 7.5 Absolute Neuts (auto) 6.9 Neutrophils % 66.8 Lymphocytes % 24.5 Monocytes % 7.6 Eosinophils % 0.4 Basophils % 0.7 Nucleated RBC % 0 Sodium 140 Potassium 4.0 Chloride 105 Carbon Dioxide 25 Anion Gap 10 BUN 9.6 Creatinine 0.9 Est GFR (CKD-EPI)AfAm 119.13 Est GFR (CKD-EPI)NonAf 102.79 Random Glucose 87 Calcium 8.6 Total Bilirubin 0.4 AST 86 H ALT 104 H Alkaline Phosphatase 78 Creatine Kinase 383 H Creatine Kinase Index 1.2 CK-MB (CK-2) 4.8 H Troponin I < 0.02 Total Protein 7.2 Albumin 3.7 Urine Color Yellow Urine Appearance Clear Urine pH 5.0 Ur Specific [place] 1.019 Urine Protein Negative Urine Glucose (UA) Trace Urine Ketones Negative Urine Blood Negative Urine Nitrite Negative Urine Bilirubin Negative Urine Urobilinogen 0.2 Ur Leukocyte Esterase Negative Opiates Screen Methadone Screen Barbiturate Screen Phencyclidine Screen Ur Amphetamines Screen MDMA (Ecstasy) Screen Benzodiazepines Screen Cocaine Screen U Marijuana (THC) Screen Alcohol, Quantitative 135.6 H 01/26/20 20:08 WBC RBC Hgb Hct MCV MCH MCHC RDW Plt Count MPV Absolute Neuts (auto) Neutrophils % Lymphocytes % Monocytes % Eosinophils % Basophils % Nucleated RBC % Sodium Potassium Chloride Carbon Dioxide Anion Gap BUN Creatinine Est GFR (CKD-EPI)AfAm Est GFR (CKD-EPI)NonAf Random Glucose Calcium Total Bilirubin AST ALT Alkaline Phosphatase Creatine Kinase Creatine Kinase Index CK-MB (CK-2) Troponin I Total Protein Albumin Urine Color Urine Appearance Urine pH Ur Specific [place] Urine Protein Urine Glucose (UA) Urine Ketones Urine Blood Urine Nitrite Urine Bilirubin Urine Urobilinogen Ur Leukocyte Esterase Opiates Screen Negative Methadone Screen Negative Barbiturate Screen Negative Phencyclidine Screen Negative Ur Amphetamines Screen Negative MDMA (Ecstasy) Screen Negative Benzodiazepines Screen Negative Cocaine Screen Negative U Marijuana (THC) Screen Negative Alcohol, Quantitative ASSESSMENT/PLAN: 44 year old male with PMH of polysubstance abuse, referred from [facility] after he had a witnessed seizure. #Seizure 2/2 Alcohol withdrawal - Alcohol level 135 - Started on Librium protocol. LFTs are mildly elevated, but pt required extensive sedation to curb symptoms so longer acting agent is better suited for current clinical picture. Will repeat LFTs in AM and if seen to be uptrending, would recommend switching to Ativan protocol. - Ativan PRN for breakthrough withdrawal - ICU aware, does not currently require ICU level care - Banana bag ordered, Thiamine and Folate PO starting tomorrow - Fall risk, seizure precautions - CK likely elevated due to seizure, will hydrate N/S@75 and repeat in AM #L Fibula fx - Cast was to be removed today at [facility] - Ortho consult placed - XRay L LE ordered to determine healing #FEN - N/S @ 75 - Regular diet #DVT - Lovenox #Dispo - Tele monitoring ATTENDING PHYSICIAN STATEMENT I saw and evaluated the patient. I reviewed the resident's note and discussed the case with the resident. I agree with the resident's findings and plan as documented. SUBJECTIVE: OBJECTIVE: ASSESSMENT AND PLAN:
[2020-01-27] MEDS: SODIUM CHLORIDE 1,000 ML IV SCH ×2 (04:14→13:44)
[2020-01-27] MEDS: chlordiazePOXIDE HCL 25 MG CAPSULE PO SCH ×4 (04:14→23:23)
[2020-01-27] MEDS: LORazepam 2 MG/ML SDV VIAL IVPUSH PRN ×3 (08:19→21:51)
[2020-01-27] MEDS: FOLIC ACID 1 MG TABLET (FP) PO SCH (09:51)
[2020-01-27] MEDS: ENOXAPARIN NA (PORCINE) 40 MG/0.4 ML DISP.SYRIN SQ SCH (09:51)
[2020-01-27] MEDS: THIAMINE HCL 100 MG TABLET (FP) PO SCH (09:51)
[2020-01-27] MEDS ORDERED: METHADONE HCL 10 MG TABLET PO ONE (11:41)
--- NOTE | 2020-01-27 11:53 | PN ---
Progress Note (short form) - Note Progress Note: Subjective: no fever or chills . he feels jittery, and shaky. no N/V today but some yesterday. last ETOH use yesterday am and last heroin use 2 days ago. uses 2 bags of heroin daily, injects and snorts. per RN, he was very shaky and sweaty in am . ativan helped reports having withdrawal seizures in past. no epilepsy in childhood . does not see neurologist and is on no meds Per [facility] care notes, staring episodes with no response were described Objective: Vital Signs: Last Vital Signs Temp Pulse Resp BP Pulse Ox 98.5 F 88 20 143/74 96 01/27/20 09:04 01/27/20 09:04 01/27/20 09:04 01/27/20 09:04 01/27/20 09:04 Laboratory Results - last 24 hr 01/26/20 01/26/20 01/26/20 19:02 19:02 20:08 WBC 10.3 H RBC 4.83 Hgb 14.7 Hct 43.6 MCV 90.3 MCH 30.5 MCHC 33.8 RDW 13.4 Plt Count 343 MPV 7.5 Absolute Neuts (auto) 6.9 Neutrophils % 66.8 Lymphocytes % 24.5 Monocytes % 7.6 Eosinophils % 0.4 Basophils % 0.7 Nucleated RBC % 0 Sodium 140 Potassium 4.0 Chloride 105 Carbon Dioxide 25 Anion Gap 10 BUN 9.6 Creatinine 0.9 Est GFR (CKD-EPI)AfAm 119.13 Est GFR (CKD-EPI)NonAf 102.79 Random Glucose 87 Calcium 8.6 Total Bilirubin 0.4 AST 86 H ALT 104 H Alkaline Phosphatase 78 Creatine Kinase 383 H Creatine Kinase Index 1.2 CK-MB (CK-2) 4.8 H Troponin I < 0.02 Total Protein 7.2 Albumin 3.7 Urine Color Yellow Urine Appearance Clear Urine pH 5.0 Ur Specific [place] 1.019 Urine Protein Negative Urine Glucose (UA) Trace Urine Ketones Negative Urine Blood Negative Urine Nitrite Negative Urine Bilirubin Negative Urine Urobilinogen 0.2 Ur Leukocyte Esterase Negative Opiates Screen Methadone Screen Barbiturate Screen Phencyclidine Screen Ur Amphetamines Screen MDMA (Ecstasy) Screen Benzodiazepines Screen Cocaine Screen U Marijuana (THC) Screen Alcohol, Quantitative 135.6 H 01/26/20 20:08 WBC RBC Hgb Hct MCV MCH MCHC RDW Plt Count MPV Absolute Neuts (auto) Neutrophils % Lymphocytes % Monocytes % Eosinophils % Basophils % Nucleated RBC % Sodium Potassium Chloride Carbon Dioxide Anion Gap BUN Creatinine Est GFR (CKD-EPI)AfAm Est GFR (CKD-EPI)NonAf Random Glucose Calcium Total Bilirubin AST ALT Alkaline Phosphatase Creatine Kinase Creatine Kinase Index CK-MB (CK-2) Troponin I Total Protein Albumin Urine Color Urine Appearance Urine pH Ur Specific [place] Urine Protein Urine Glucose (UA) Urine Ketones Urine Blood Urine Nitrite Urine Bilirubin Urine Urobilinogen Ur Leukocyte Esterase Opiates Screen Negative Methadone Screen Negative Barbiturate Screen Negative Phencyclidine Screen Negative Ur Amphetamines Screen Negative MDMA (Ecstasy) Screen Negative Benzodiazepines Screen Negative Cocaine Screen Negative U Marijuana (THC) Screen Negative Alcohol, Quantitative Physical Exam: NAD , awake, alert, resting comfortably MMM, no teeth, no facial droop, no nystagmus, CV: RRR, no MRG LUngs: CTAB. ABd: obese, soft, NT, ND , N LBS Ext : No edema or erythema on upper or visible lower ext. L leg/foot cast which is dirty,. big toe is visible and can move it . Nl color of skin mild tremor in hands skin : pustular rash all over body . no signs of ceelulitis Imaging: cxray image, and TIb/Fib xray image reviewed Assessment/Plan: 44 y/o man with h/o Polysubstance abuse (Alcohol, Heroin, Cocaine), Tobacco use, withdrawal Seizures and recent Left tibia fracture . he was sent from [facility] for seizure like activity 1- ETOH withdrawal: no signs of Wernicke's , got thiamine in ER . - cont librium protocol - cont Thiamine and folate - drug rehab after detox if interested - monitor and replete electrolytes. labs pending - cont IVF 2- MEthadone abuse/withdrawal : start methadone detox 3- Seizure like activity: chloe valdez MD note reviewed. activity was described as staring episodes with unresponsiveness. no convulsion . - no events here - cont detox and consult neuro 4- recent L Fib Fx: was supposed to follow at [facility] yesterday . - Ortho consult 5- mild leukocytosis: likely reactive . Cxray reviewed. no infiltrate , UA clean - hold off Abx cont Lovenox HLOC Visit type - Emergency Visit Emergency Visit: Yes ED Registration Date: 01/26/20 Care time: The patient presented to the Emergency Department on the above date and was hospitalized for further evaluation of their emergent condition. - New Patient This patient is new to me today: No - Critical Care Critical Care patient: No - Discharge Referral Referred to [facility] Med P.C.: No
--- NOTE | 2020-01-27 13:35 | CON.ORTH ---
Consult Reason for Consultation:: left ankle fx - Smoking History Smoking history: Current every day smoker Have you smoked in the past 12 months: Yes Aproximately how many cigarettes per day: 10 Home Medications - Allergies Allergies/Adverse Reactions: Allergies Allergy/AdvReac Type Severity Reaction Status Date / Time No Known Allergies Allergy Verified 01/26/20 17:57 - Home Medications Home Medications: Ambulatory Orders NK [No Known Home Medication] 01/26/20 Physical Exam for Ortho Vital Signs: Vital Signs Temperature 98.5 F 01/27/20 09:04 Pulse Rate 88 01/27/20 09:04 Respiratory Rate 01/27/20 09:04 Blood Pressure 143/74 01/27/20 09:04 O2 Sat by Pulse Oximetry (%) 96 01/27/20 09:04 Labs: CBC, BMP 01/26/20 19:02 01/26/20 19:02 - Lower Extremity Ankle: Yes: Left Foot: Yes: Limited ROM, Pain, Swelling, Tenderness, Other (splint is wet and falling apart, nvi) Imaging - Results X-ray: Image Reviewed Assessment/Plan 44 year old male with PMH of polysubstance abuse. He presented to [facility] this morning for alcohol detox. While seated, he states that he "dozed off" and woke up a few minutes later, and was told that he had a seizure and was being transferred to [facility]. As per [facility] notes, "he had several episodes of starring spells and tremors, he did not lose consciousness, but he kept going in and out." Pt denies any aura, prodromal symptoms, confusion, or tongue biting. He states he has been drinking heavily, 1 pint of vodka daily and last drink was 1 pint this morning. Reports history of a seizure 15 years ago during alcohol withdrawal. He endorses vomiting x1, diarrhea x2, tremors, agitation, fevers since last night. Pt sustained a left ankle fx 2 weeks ago. He was treated at [facility] and was scheduled to have surgery last week. As per pt he was not able to make it to the hospital. Pt admittedly has been ambulating on his left LE. Denies any numbness or tingling. a/p left distal fibula fx splint was removed and new splint applied Pt is to f/u with [facility] regarding surgical vs conservative treatment NWB elevation ok to d/c from ortho pov Pt will f/u with [facility] for definitive treatment d/w Dr. Manning
--- NOTE | 2020-01-27 14:11 | CON.NEURO ---
Consult - Smoking History Smoking history: Current every day smoker Have you smoked in the past 12 months: Yes Aproximately how many cigarettes per day: 10 Home Medications - Allergies Allergies/Adverse Reactions: Allergies Allergy/AdvReac Type Severity Reaction Status Date / Time No Known Allergies Allergy Verified 01/26/20 17:57 - Home Medications Home Medications: Ambulatory Orders NK [No Known Home Medication] 01/26/20 Physical Exam-Neuro Vital Signs: Vital Signs Temperature 98.5 F 01/27/20 09:04 Pulse Rate 88 01/27/20 09:04 Respiratory Rate 20 01/27/20 09:04 Blood Pressure 143/74 01/27/20 09:04 O2 Sat by Pulse Oximetry (%) 96 01/27/20 09:04 Labs: CBC, BMP 01/26/20 19:02 01/26/20 19:02 Assessment/Plan cc Seizure HPI 44 year old male history of polysubstance abuse, he was in detox at [facility]. Pateint has multiple seizure and ct head it was negative. HE also have fibula fracture . Patient has been drinking everyday for few days. He has history of polysubstance abuse. He has seizure in 2006 and was not treated with AED, he was given klonipin. Patinet is alert and feeling anxious . He is being given ativan prn. There is was tonic clonic activity, and no incontinence. PAST MEDICAL HISTORY: See HPI PAST SURGICAL HISTORY: R leg 2005 L leg 2012 Social History: See HPI Allergies No Known Allergies Allergy (Verified 01/26/20 17:57) HOME MEDICATIONS: Home Medications Medication Instructions Recorded NK [No Known Home Medication] 01/26/20 ROS,FH,SH reviewed in chart NEUROLOGICAL EXAMINATION Alert oriented x 3, speech is normal afebrile, neck is supple eomi, pupils reactive no face asymmetry moving all ext sensation is normal reflex are normal ct head unremarkable Assessment/Plan 44 year old male history of polysubstance abuse and has been drinking heavy before coming to rehab and had seizure , likely to be alcohol withdrawal related. Plan:; seizure precautions - no need for AED , mri of brain - continue ativan prn - psych consult -an EEG can be obtained Thanking you so much Cordell Camejo MD
[2020-01-27 17:45] LABS: BASO % 0.7 % (0-2.0); EOS % 0.9 % (0-4.5); HEMATOCRIT 40.7 % (35.4-49); HEMOGLOBIN 13.8 GM/dL (11.7-16.9); LYMPH % 24.6 % (8-40); MCH 30.7 pg (25.7-33.7); MCHC 33.9 g/dl (32.0-35.9); MEAN CELL VOLUME 90.3 fl (80-96); MEAN PLT VOLUME 7.6 fl (7.5-11.1); MONO % 7.9 % (3.8-10.2); NEUT % 65.9 % (42.8-82.8); PLATELET COUNT 230 K/MM3 (134-434); RDW 13.1 % (11.9-15.9); WHITE BLOOD COUNT 7.3 K/mm3 (4.0-10.0)
[2020-01-27 18:13] LABS: MAGNESIUM 1.5 mg/dL (1.8-2.4); PHOSPHOROUS 2.5 mg/dL (2.5-4.9); POTASSIUM 3.9 mmol/L (3.5-5.1)
[2020-01-27] MEDS ORDERED: MAGNESIUM SULF 50% (8.12 MEQ/2 ML-1 GM VIAL) IVPB ONE (18:16)
--- NOTE | 2020-01-27 18:20 | PN ---
Progress Note (short form) - Note Progress Note: On- call resident following patient's CBC, Potassium, Magnesium, Phosphorus. Leukocytosis resolved. There is slight drop in hemoglobin, however appears dilutional secondary to IV fluid hydration. Negative signs of bleeding. Noted hypomagnesemic- will replete with 2 grams IV Magnesium Potassium, Phosphorous within acceptable limits.
[2020-01-27] MEDS ORDERED: MAGNESIUM 2GM/50ML STERILE WATER IVPB IVPB ONE (19:15)
[2020-01-27] MEDS ORDERED: MELATONIN 5 MG TABLETS PO ONE (23:05)
[2020-01-28] MEDS ORDERED: MELATONIN 5 MG TABLETS PO ONE (01:02)
[2020-01-28] MEDS ORDERED: METHADONE HCL 5 MG TABLET PO ONE (06:00)
[2020-01-28] MEDS: chlordiazePOXIDE HCL 25 MG CAPSULE PO SCH ×4 (06:09→22:41)
[2020-01-28] MEDS: SODIUM CHLORIDE 1,000 ML IV SCH (06:09)
[2020-01-28 08:15] LABS: MAGNESIUM 1.8 mg/dL (1.8-2.4); PHOSPHOROUS 2.5 mg/dL (2.5-4.9); POTASSIUM 3.9 mmol/L (3.5-5.1)
[2020-01-28 08:17] LABS: ALBUMIN 2.9 g/dl (3.4-5.0); BILIRUBIN,DIRECT 0.2 mg/dL (0.0-0.2); BILIRUBIN,TOTAL 0.7 mg/dL (0.2-1); TOT PROT 5.8 g/dl (6.4-8.2)
[2020-01-28] MEDS: PANTOPRAZOLE 20 MG TABLET PO SCH (10:56)
[2020-01-28] MEDS: FOLIC ACID 1 MG TABLET (FP) PO SCH (10:56)
[2020-01-28] MEDS: ENOXAPARIN NA (PORCINE) 40 MG/0.4 ML DISP.SYRIN SQ SCH (10:57)
[2020-01-28] MEDS: THIAMINE HCL 100 MG TABLET (FP) PO SCH (10:57)
[2020-01-28] MEDS: LORazepam 2 MG/ML SDV VIAL IVPUSH PRN (12:44)
--- NOTE | 2020-01-28 15:23 | PN ---
Teaching Attending Note Name of Resident: Sindy Ludwig ATTENDING PHYSICIAN STATEMENT I saw and evaluated the patient. I reviewed the resident's note and discussed the case with the resident. I agree with the resident's findings and plan as documented. SUBJECTIVE: No fever or chills . minimal pain in L leg. No SOB or CP OBJECTIVE: NAD , awake, alert, resting comfortably MMM CV: RRR, no MRG LUngs: CTAB. ABd: obese, soft, NT, ND , N LBS Ext: No edema or erythema on upper or visible lower ext. L leg/foot cast able to wiggle toes. has sensation to light touch skin: pustular rash all over body . Assessment/Plan: 44 y/o man with h/o Polysubstance abuse (Alcohol, Heroin, Cocaine), Tobacco use, withdrawal Seizures and recent Left tibia fracture . he was sent from [facility] for seizure like activity 1- ETOH withdrawal: - cont librium protocol - cont Thiamine and folate - monitor and replete electrolytes. - cont IVF 2- MEthadone abuse/withdrawal : cont methadone detox 3- Seizure like activity: - Nop EAD at this time - EEG and out pt follow up 4- Recent L Fib Fx: cast was replaced by ortho. - NWB on LLE . - crutches and PT 5- Transaminitis : due to alcohol . improved cont Lovenox for DVT px dispo: unsteady and might need rehab. will have PT evaluate again to determine dispo
--- NOTE | 2020-01-28 17:16 | PN ---
Progress Note (short form) - Note Progress Note: 44 year old male history of polysubstance abuse, he was in detox at [facility]. Pateint has multiple seizure and ct head it was negative. HE also have fibula fracture . Patient has been drinking everyday for few days. He has history of polysubstance abuse. He has seizure in 2006 and was not treated with AED, he was given klonipin. Patinet is alert and feeling anxious . He is being given ativan prn. There is was tonic clonic activity, and no incontinence. No more episode in last 24 hour, no focal neuroloigcal sypmtoms. eeg cant be done. NEUROLOGICAL EXAMINATION Alert oriented x 3, speech is normal afebrile, neck is supple eomi, pupils reactive no face asymmetry moving all ext sensation is normal reflex are normal ct head unremarkable eeg is pending mri is not needed. Assessment/Plan 44 year old male history of polysubstance abuse and has been drinking heavy before coming to rehab and had seizure , likely to be alcohol withdrawal related. neuro exam unremarkable, he does have ? 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 Plan:; seizure precautions - no need for AED , mri of brain - continue ativan prn - psych consult for etoh withdrawal - eeg on , if patient stays in hospital. Thanking you so much Cordell Camejo MD
--- NOTE | 2020-01-28 18:52 | PN ---
Physical Exam: SUBJECTIVE: Patient seen and examined today, uncomfortable but in no distress. Said he feels tired, weak. OBJECTIVE: Vital Signs Period Temp Pulse Resp BP Sys/[place] Pulse Ox Last 24 Hr 97.6 F-98.3 F 81-94 18-20 139-153/77-90 96-100 GENERAL: The patient is awake, alert, and fully oriented, in no acute distress. HEAD: Normal with no signs of trauma. EYES: PERRL, extraocular movements intact NECK: Trachea midline, full range of motion, supple. LUNGS: Breath sounds equal, clear to auscultation bilaterally, no wheezes, no crackles, no accessory muscle use. HEART: Regular rate and rhythm, S1, S2 without murmur, rub or gallop. ABDOMEN: Soft, nontender, nondistended, normoactive bowel sounds EXTREMITIES: 2+ pulses, warm, well-perfused, no edema. NEUROLOGICAL: Left Fibular fracture 2/2 fall 3 weeks ago in soft cast w/ hardware. Normal speech, gait not observed. PSYCH: Normal mood, normal affect. SKIN: Warm, dry, normal turgor, no rashes or lesions noted Laboratory Results - last 24 hr CBC, BMP 01/27/20 17:34 01/28/20 07:25 Active Medications Chlordiazepoxide HCl (Librium -) 25 mg PO [id number] FREDY Stop: 01/28/20 23:01 Last Admin: 01/28/20 17:04 Dose: 25 mg Documented by: Chlordiazepoxide HCl (Librium -) 25 mg PO Q4H PRN PRN Reason: WITHDRAWAL(CONT SUBST) Stop: 01/28/20 23:59 Chlordiazepoxide HCl (Librium -) 10 mg PO [id number] FREDY Stop: 01/29/20 23:01 Chlordiazepoxide HCl (Librium -) 10 mg PO Q12H FREDY Stop: 01/30/20 17:01 Chlordiazepoxide HCl (Librium -) 10 mg PO Q4H PRN PRN Reason: WITHDRAWAL(CONT SUBST) Stop: 01/30/20 00:00 Chlordiazepoxide HCl (Librium -) 10 mg PO ONCE@0500 ONE Stop: 01/31/20 05:01 Enoxaparin Sodium (Lovenox -) 40 mg SQ DAILY [facility] Last Admin: 01/28/20 10:57 Dose: 40 mg Documented by: Folic Acid (Folic Acid -) 1 mg PO DAILY [facility] Last Admin: 01/28/20 10:56 Dose: 1 mg Documented by: Sodium Chloride (Normal Saline -) 1,000 mls @ 75 mls/hr IV ASDIR [facility] Last Admin: 01/28/20 06:09 Dose: 75 mls/hr Documented by: Lorazepam (Ativan Injection -) 2 mg IVPUSH Q4H PRN PRN Reason: WITHDRAWAL(CONT SUBST) Last Admin: 01/28/20 12:44 Dose: 2 mg Documented by: Methadone HCl (Dolophine -) 5 mg PO DAILY@0600 [facility] Stop: 01/31/20 06:01 Methadone HCl (Dolophine -) 15 mg PO DAILY@0600 [facility]Y Stop: 01/29/20 06:01 Methadone HCl (Dolophine -) 10 mg PO DAILY@0600 [facility] Stop: 01/30/20 06:01 Pantoprazole Sodium (Protonix -) 20 mg PO DAILY [facility] Last Admin: 01/28/20 10:56 Dose: 20 mg Documented by: Thiamine HCl (Vitamin B1 -) 100 mg PO DAILY [facility] Last Admin: 01/28/20 10:57 Dose: 100 mg Documented by: ASSESSMENT/PLAN: 44yoM w/ PMHx of multisubstance abuse including alcohol, heroin, cocaine, and tobacco use 1/2 PPD, presented to the ED from [facility] 2/ to alcoholic withdrawal Seizures. Additionally, he recently sustained a left fibular fracture 2/2 a fall from a seated position. In the ED he was given valium to control his seizures. Acute on Chronic Alcohol Withdrawal - Continue Librium protocol to reduce seizure activity - Ativan IVPUSH for breakthrough activity - Cont Thiamine and folate to prevent wernickes - Monitor and replete electrolytes as needed - Continue IV Fluid Heroin Withdrawal -Cont Methadone replacement: Currently day 2 of 5 -Monitor for signs of increased withdrawal Recent L Fibular Fracture - Distal L fibular fracture w/ calcaneal hardware done by [facility] - Cast replaced by ortho today w/ soft cast. Toes can move and feel sensation. - Per PT and Ortho: Ptn is not stable on ambulation and should be NWB on LLE . - FU w/ PT tomorrow AM for test and ambulation with crutches. Transaminitis : -Likely 2/2 alcohol --> resolving -CK: Normalizing PPx -DVT PPx: Lovenox -GI PPx: Pantoprazol Goals of Care -Continue detox inpatient 2/2 L fibular fx -Transfer to [facility] following for continued rehab, Dr. Rodríguez spoken to already FEN: Fluids: NS Electrolytes: Monitor LFTs Nutrition: Regular Diet dispo: Continue detox on med/surg 2/2 unsteady gait due to fracture Visit type - Emergency Visit Emergency Visit: No - New Patient This patient is new to me today: Yes Date on this admission: 01/28/20 - Critical Care Critical Care patient: No - Discharge Referral Referred to [facility] Med P.C.: No ATTENDING PHYSICIAN STATEMENT I saw and evaluated the patient. I reviewed the resident's note and discussed the case with the resident. I agree with the resident's findings and plan as documented. SUBJECTIVE: OBJECTIVE: ASSESSMENT AND PLAN:
[2020-01-29] MEDS: LORazepam 2 MG/ML SDV VIAL IVPUSH PRN (00:15)
[2020-01-29] MEDS: chlordiazePOXIDE HCL 10 MG CAPSULE PO SCH ×3 (04:43→17:31)
[2020-01-29] MEDS: SODIUM CHLORIDE 1,000 ML IV SCH ×2 (04:43→20:29)
[2020-01-29] MEDS ORDERED: METHADONE HCL 5 MG TABLET PO SCH (06:00)
--- NOTE | 2020-01-29 09:17 | PN ---
Teaching Attending Note Name of Resident: Kenny Orozco ATTENDING PHYSICIAN STATEMENT I saw and evaluated the patient. I reviewed the resident's note and discussed the case with the resident. I agree with the resident's findings and plan as documented. THIS PATIENT IS NEW TO THIS [facility] TODAY, 01/29/2020 SUBJECTIVE: Patient is having tremors, But NAD. OBJECTIVE: Vital Signs Temperature 98.1 F 01/29/20 00:52 Pulse Rate 70 01/29/20 05:00 Respiratory Rate 18 01/29/20 05:00 Blood Pressure 141/71 01/29/20 05:00 O2 Sat by Pulse Oximetry (%) 96 01/28/20 17:43 PE: As per resident's note LLE : soft immobilizer CBCD WBC 7.3 K/mm3 (4.0-10.0) 01/27/20 17:34 RBC 4.50 M/mm3 (4.00-5.60) 01/27/20 17:34 Hgb 13.8 GM/dL (11.7-16.9) 01/27/20 17:34 Hct 40.7 % (35.4-49) 01/27/20 17:34 MCV 90.3 fl (80-96) 01/27/20 17:34 MCHC 33.9 g/dl (32.0-35.9) 01/27/20 17:34 RDW 13.1 % (11.9-15.9) 01/27/20 17:34 Plt Count 230 K/MM3 (134-434) D 01/27/20 17:34 MPV 7.6 fl (7.5-11.1) 01/27/20 17:34 CMP Sodium 140 mmol/L (136-145) 01/26/20 19:02 Potassium 3.9 mmol/L (3.5-5.1) 01/28/20 07:25 Chloride 105 mmol/L (98-107) 01/26/20 19:02 Carbon Dioxide 25 mmol/L (21-32) 01/26/20 19:02 Anion Gap 10 MMOL/L (8-16) 01/26/20 19:02 BUN 9.6 mg/dL (7-18) 01/26/20 19:02 Creatinine 0.9 mg/dL (0.55-1.3) 01/26/20 19:02 Random Glucose 87 mg/dL (74-106) 01/26/20 19:02 Calcium 8.6 mg/dL (8.5-10.1) 01/26/20 19:02 Total Bilirubin 0.7 mg/dL (0.2-1) 01/28/20 07:25 AST 40 U/L (15-37) H 01/28/20 07:25 ALT 62 U/L (13-61) H 01/28/20 07:25 Alkaline Phosphatase 67 U/L (45-117) 01/28/20 07:25 Total Protein 5.8 g/dl (6.4-8.2) L 01/28/20 07:25 Albumin 2.9 g/dl (3.4-5.0) L 01/28/20 07:25 CARDIAC ENZYMES Creatine Kinase 136 U/L (26-308) 01/28/20 07:25 Troponin I < 0.02 ng/ml (0.00-0.05) 01/26/20 19:02 Current Medications Generic Name Dose Route Start Last Admin Trade Name Freq PRN Reason Stop Dose Admin Chlordiazepoxide HCl 10 mg 01/29/20 05:00 01/29/20 04:43 Librium - PO 01/29/20 23:01 10 mg [id number] FREDY Administration Chlordiazepoxide HCl 10 mg 01/30/20 05:00 Librium - PO 01/30/20 17:01 Q12H FREDY Chlordiazepoxide HCl 10 mg 01/29/20 00:00 Librium - PO 01/30/20 00:00 Q4H PRN WITHDRAWAL(CONT SUBST) Chlordiazepoxide HCl 10 mg 01/31/20 05:00 Librium - PO 01/31/20 05:01 ONCE@0500 ONE Enoxaparin Sodium 40 mg 01/27/20 10:00 01/28/20 10:57 Lovenox - SQ 40 mg DAILY FREDY Administration Folic Acid 1 mg 01/27/20 10:00 01/28/20 10:56 Folic Acid - PO 1 mg DAILY FREDY Administration Sodium Chloride 1,000 mls @ 75 mls/hr 01/27/20 01:15 01/29/20 04:43 Normal Saline - IV 75 mls/hr ASDIR FREDY Administration Lorazepam 2 mg 01/27/20 04:17 01/29/20 00:15 Ativan Injection - IVPUSH 2 mg Q4H PRN Administration WITHDRAWAL(CONT SUBST) Methadone HCl 5 mg 01/31/20 06:00 Dolophine - PO 01/31/20 06:01 DAILY@0600 [facility] Methadone HCl 10 mg 01/30/20 06:00 Dolophine - PO 01/30/20 06:01 DAILY@0600 [facility] Multivitamins/Minerals/Vitamin C 1 tab 01/29/20 07:56 Tab-A-Vit - PO 01/29/20 07:57 ONCE ONE Pantoprazole Sodium 20 mg 01/28/20 10:00 01/28/20 10:56 Protonix - PO 20 mg DAILY FREDY Administration Thiamine HCl 100 mg 01/27/20 10:00 01/28/20 10:57 Vitamin B1 - PO 100 mg DAILY FREDY Administration Home Medications Medication Instructions Recorded Chlordiazepoxide [Librium -] 10 mg PO Q12H capsule 01/28/20 Chlordiazepoxide [Librium -] 10 mg PO Q4H PRN capsule 01/28/20 Chlordiazepoxide [Librium -] 10 mg PO [id number] capsule 01/28/20 Chlordiazepoxide [Librium -] 25 mg PO Q4H PRN capsule 01/28/20 Chlordiazepoxide [Librium -] 25 mg PO [id number] capsule 01/28/20 Chlordiazepoxide [Librium -] 50 mg PO [id number] capsule 01/28/20 Folic Acid - 1 mg PO DAILY #30 tablet 01/28/20 Methadone [Dolophine -] 5 mg PO DAILY@0600 tablet 01/28/20 Methadone [Dolophine -] 10 mg PO DAILY@0600 tablet 01/28/20 Methadone [Dolophine -] 15 mg PO DAILY@0600 tablet 01/28/20 Thiamine HCl [Vitamin B1 -] 100 mg PO DAILY #30 tablet 01/28/20 Intake & Output 01/26/20 01/27/20 01/28/20 01/29/20 23:59 23:59 23:59 23:59 Intake Total 1465 2050 900 Output Total 1100 900 Balance 1465 950 0 Weight 115.666 kg ASSESSMENT AND PLAN: 44 y/o man with h/o Polysubstance abuse (Alcohol, Heroin, Cocaine), Tobacco use, withdrawal Seizures and recent Left tibia fracture . he was sent from [facility] for seizure like activity # ETOH withdrawal: continue Librium protocol , continue thiamine and Folate, will continue to monitor # MEthadone abuse/withdrawal : cont methadone detox # Seizure like activity: EEG and out pt follow up # Recent L Fib Fx: soft cast was replaced by ortho. NWB on LLE , crutches and PT # Transaminitis : due to alcohol . improving DVt px: Pallavi will try to transfer the patient to [facility] since patient seen an orthopedic for hie LLE prior
[2020-01-29] MEDS ORDERED: MULTIVITAMINS (DAILY MVI) TABLET (FP) PO ONE (10:00)
[2020-01-29] MEDS ORDERED: NICOTINE POLACRILEX 4 MG GUM BUC PRN (10:10)
[2020-01-29] MEDS: FOLIC ACID 1 MG TABLET (FP) PO SCH (10:13)
[2020-01-29] MEDS: PANTOPRAZOLE 20 MG TABLET PO SCH (10:13)
[2020-01-29] MEDS: ENOXAPARIN NA (PORCINE) 40 MG/0.4 ML DISP.SYRIN SQ SCH (10:13)
[2020-01-29] MEDS: THIAMINE HCL 100 MG TABLET (FP) PO SCH (10:14)
[2020-01-29 10:40] LABS: BASO % 0.8 % (0-2.0); EOS % 3.1 % (0-4.5); HEMATOCRIT 41.6 % (35.4-49); HEMOGLOBIN 14.2 GM/dL (11.7-16.9); LYMPH % 28.2 % (8-40); MCHC 34.2 g/dl (32.0-35.9); MEAN CELL VOLUME 90.8 fl (80-96); MEAN PLT VOLUME 8.3 fl (7.5-11.1); MONO % 7.7 % (3.8-10.2); NEUT % 60.2 % (42.8-82.8); PLATELET COUNT 203 K/MM3 (134-434); RBC 4.58 M/mm3 (4.00-5.60); RDW 13.1 % (11.9-15.9); WHITE BLOOD COUNT 7.8 K/mm3 (4.0-10.0)
[2020-01-29 11:05] LABS: BLOOD UREA NITROGEN 13.2 mg/dL (7-18); CALCIUM 8.6 mg/dL (8.5-10.1); CREATININE 0.8 mg/dL (0.55-1.3); POTASSIUM 4.1 mmol/L (3.5-5.1)
[2020-01-29] MEDS ORDERED: SODIUM CHLORIDE FOR INHALATION 3 ML VIAL.NEB IH ONE (12:00)
[2020-01-29] MEDS ORDERED: NICOTINE POLACRILEX 2 MG GUM BUC PRN (12:00)
--- NOTE | 2020-01-29 17:29 | PN ---
Physical Exam: SUBJECTIVE: Patient seen and examined today, remains uncomfortable and shaky, however, not seizing. OBJECTIVE: Vital Signs Period Temp Pulse Resp BP Sys/[place] Pulse Ox Last 24 Hr 97.6 F-98.2 F 70-98 16-20 136-151/68-99 96-98 GENERAL: The patient is awake, alert, and fully oriented, in no acute distress. HEAD: Normal with no signs of trauma. EYES: PERRL, extraocular movements intact NECK: Trachea midline, full range of motion, supple. LUNGS: Breath sounds equal, clear to auscultation bilaterally, no wheezes, no crackles, no accessory muscle use. HEART: Regular rate and rhythm, S1, S2 without murmur, rub or gallop. ABDOMEN: Soft, nontender, nondistended, normoactive bowel sounds EXTREMITIES: 2+ pulses, warm, well-perfused, no edema. NEUROLOGICAL: Left Fibular fracture 2/2 fall 3 weeks ago in soft cast w/ hardware. Normal speech, gait not observed. PSYCH: Normal mood, normal affect. SKIN: Warm, dry, normal turgor, no rashes or lesions noted Laboratory Results - last 24 hr CBC, BMP 01/29/20 09:45 01/29/20 09:45 Active Medications Active Medications Chlordiazepoxide HCl (Librium -) 10 mg PO [id number] [facility] Stop: 01/29/20 23:01 Last Admin: 01/29/20 17:31 Dose: 10 mg Documented by: Chlordiazepoxide HCl (Librium -) 10 mg PO Q12H FREDY Stop: 01/30/20 17:01 Chlordiazepoxide HCl (Librium -) 10 mg PO Q4H PRN PRN Reason: WITHDRAWAL(CONT SUBST) Stop: 01/30/20 00:00 Chlordiazepoxide HCl (Librium -) 10 mg PO ONCE@0500 ONE Stop: 01/31/20 05:01 Enoxaparin Sodium (Lovenox -) 40 mg SQ DAILY [facility] Last Admin: 01/29/20 10:13 Dose: 40 mg Documented by: Folic Acid (Folic Acid -) 1 mg PO DAILY [facility] Last Admin: 01/29/20 10:13 Dose: 1 mg Documented by: Sodium Chloride (Normal Saline -) 1,000 mls @ 75 mls/hr IV ASDIR [facility] Last Admin: 01/29/20 04:43 Dose: 75 mls/hr Documented by: Lorazepam (Ativan Injection -) 2 mg IVPUSH Q4H PRN PRN Reason: WITHDRAWAL(CONT SUBST) Last Admin: 01/29/20 00:15 Dose: 2 mg Documented by: Methadone HCl (Dolophine -) 5 mg PO DAILY@0600 [facility] Stop: 01/31/20 06:01 Methadone HCl (Dolophine -) 10 mg PO DAILY@0600 [facility] Stop: 01/30/20 06:01 Nicotine Polacrilex (Nicorette Gum -) 4 mg BUC Q2H PRN PRN Reason: NICOTINE REPLACEMENT RX Last Admin: 01/29/20 13:01 Dose: 4 mg Documented by: Pantoprazole Sodium (Protonix -) 20 mg PO DAILY [facility] Last Admin: 01/29/20 10:13 Dose: 20 mg Documented by: Thiamine HCl (Vitamin B1 -) 100 mg PO DAILY [facility] Last Admin: 01/29/20 10:14 Dose: 100 mg Documented by: ASSESSMENT/PLAN: 44yoM w/ PMHx of multisubstance abuse including alcohol, heroin, cocaine, and tobacco use 1/2 PPD, presented to the ED from [facility] 2/ to alcoholic withdrawal Seizures. Additionally, he recently sustained a left fibular fracture 2/2 a fall from a seated position. In the ED he was given valium to control his seizures. Acute on Chronic Alcohol Withdrawal - Continue Librium protocol to reduce seizure activity - Ativan IVPUSH for breakthrough activity - Cont Thiamine and folate to prevent wernickes - Monitor and replete electrolytes as needed - Continue IV Fluid Heroin Withdrawal -Cont Methadone replacement: Currently day 3 of 5 -Monitor for signs of increased withdrawal Recent L Fibular Fracture - Per [facility]: Ptn does not need surgery, transfer refused. - Distal L fibular fracture 2/2 fall from bed - Cast replaced by ortho today w/ soft cast. Toes can move and feel sensation. - Per PT and Ortho: Ptn is not stable on ambulation and should be NWB on LLE . Transaminitis : -Likely 2/2 alcohol --> resolving -CK: Normalizing PPx -DVT PPx: Lovenox -GI PPx: Pantoprazol Goals of Care -Continue detox inpatient 2/2 L fibular fx -Transfer to [facility] following for continued rehab, Dr. Rodríguez spoken to already -Unlikely 2/2 fracture, ptn not able to ambulate and does not qualify -Per PT needs short term rehab. FEN: Fluids: NS Electrolytes: Monitor LFTs Nutrition: Regular Diet dispo: Patient is ready for transfer to Med/Surg from [facility] and deemed medically stable. Visit type - Emergency Visit Emergency Visit: No - New Patient This patient is new to me today: No - Critical Care Critical Care patient: No - Discharge Referral Referred to [facility] Med P.C.: No ATTENDING PHYSICIAN STATEMENT I saw and evaluated the patient. I reviewed the resident's note and discussed the case with the resident. I agree with the resident's findings and plan as documented. SUBJECTIVE: OBJECTIVE: ASSESSMENT AND PLAN:
--- NOTE | 2020-01-29 17:33 | PN ---
Progress Note (short form) - Note Progress Note: 44 year old male history of polysubstance abuse, he was in detox at [facility]. Pateint has multiple seizure and ct head it was negative. HE also have fibula fracture . Patient has been drinking everyday for few days. He has history of polysubstance abuse. He has seizure in 2006 and was not treated with AED, he was given klonipin. Patinet is alert and feeling anxious . He is being given ativan prn. There is was tonic clonic activity, and no incontinence. There is no seizure episode today. NEUROLOGICAL EXAMINATION Alert oriented x 3, speech is normal afebrile, neck is supple eomi, pupils reactive no face asymmetry moving all ext sensation is normal reflex are normal ct head unremarkable eeg is pending mri is not needed. Assessment/Plan 44 year old male history of polysubstance abuse and has been drinking heavy before coming to rehab and had seizure , likely to be alcohol withdrawal related. neuro exam unremarkable, there is no episode today. Plan:; seizure precautions - no need for AED , mri of brain - continue ativan prn - eeg on , if patient stays in hospital. Thanking you so much Cordell Camejo MD
--- NOTE | 2020-01-29 17:49 | PN ---
Progress Note (short form) - Note Progress Note: TRANSFER NOTE: 44yo M w/ PMHx of polysubstance abuse including alcohol, heroin, cocaine, and cigarettes, as well as previous withdrawal seizures 2/2 alcohol 15 years ago presented to [facility] for alcohol detox. While at [facility], ptn suffered a seizure and was transferred to [facility]. Per [facility], ptn stared off multiple times and had tremors, but did not lose conciousness. Patient denied any aura, prodromal symptoms, confusion or tongue biting. Patient states he as been drinking 1 pint of vokda daily with the last drink this morning. Additionally endorses vomiting, diarrhea and aggitation. Additionally, reports fracture of his L fibula after he fell down when standing from a seated position. He had a cast placed at [facility]. During his hospital course he was given thiamine, folic acid, b12. Librium protocol was started, as was methedone. The patient has remained hemodynamically stable and neurologically stable during this time. At this time the patient is ready for transfer to the med/surg team.
[2020-01-29] MEDS ORDERED: chlordiazePOXIDE HCL 10 MG CAPSULE PO PRN ×2 (20:27)
[2020-01-29] MEDS ORDERED: LORazepam 2 MG/ML SDV VIAL IVPUSH PRN (20:27)
[2020-01-29] MEDS ORDERED: PT OWN MED DRAWER 7, Y5N ONE (22:57)
[2020-01-29] MEDS: NICOTINE POLACRILEX 2 MG GUM BUC PRN (22:59)
[2020-01-29] MEDS ORDERED: chlordiazePOXIDE HCL 10 MG CAPSULE PO SCH (23:00)
[2020-01-30] MEDS ORDERED: LORazepam 1 MG TABLET PO PRN (02:37)
[2020-01-30] MEDS ORDERED: chlordiazePOXIDE HCL 10 MG CAPSULE PO SCH (05:00)
[2020-01-30] MEDS ORDERED: METHADONE HCL 10 MG TABLET PO SCH ×2 (06:00)
[2020-01-30] MEDS: chlordiazePOXIDE HCL 10 MG CAPSULE PO SCH ×2 (06:15→17:54)
[2020-01-30 08:14] LABS: BASO % 0.5 % (0-2.0); EOS % 1.6 % (0-4.5); HEMATOCRIT 38.8 % (35.4-49); HEMOGLOBIN 13.3 GM/dL (11.7-16.9); LYMPH % 16.6 % (8-40); MCH 30.5 pg (25.7-33.7); MCHC 34.2 g/dl (32.0-35.9); MEAN CELL VOLUME 89.3 fl (80-96); MEAN PLT VOLUME 8.4 fl (7.5-11.1); MONO % 5.4 % (3.8-10.2); NEUT % 75.9 % (42.8-82.8); PLATELET COUNT 195 K/MM3 (134-434); RBC 4.35 M/mm3 (4.00-5.60); RDW 13.1 % (11.9-15.9); WHITE BLOOD COUNT 7.2 K/mm3 (4.0-10.0)
[2020-01-30 08:15] LABS: CALCIUM 8.7 mg/dL (8.5-10.1); POTASSIUM 3.8 mmol/L (3.5-5.1)
--- NOTE | 2020-01-30 08:28 | PN ---
Progress Note (short form) - Note Progress Note: 44 year old male history of polysubstance abuse, he was in detox at [facility]. Pateint has multiple seizure and ct head it was negative. HE also have fibula fracture . Patient has been drinking everyday for few days. He has history of polysubstance abuse. He has seizure in 2006 and was not treated with AED, he was given klonipin. Patinet is alert and feeling anxious . He is being given ativan prn. chart reviewed, events noted. THere is no episode overnight. He may get his eeg today. Being transferred to med-surg. NEUROLOGICAL EXAMINATION Alert oriented x 3, speech is normal afebrile, neck is supple eomi, pupils reactive no face asymmetry moving all ext sensation is normal reflex are normal ct head unremarkable eeg is pending mri is not needed. Assessment/Plan 44 year old male history of polysubstance abuse and has been drinking heavy before coming to rehab and had seizure , likely to be alcohol withdrawal related. neuro exam unremarkable, there is no episode today. Plan:; seizure precautions - no need for AED , no need mri of brain - continue ativan prn - eeg on Thanking you so much Cordell Camejo MD
[2020-01-30] MEDS: ENOXAPARIN NA (PORCINE) 40 MG/0.4 ML DISP.SYRIN SQ SCH (09:39)
[2020-01-30] MEDS: FOLIC ACID 1 MG TABLET (FP) PO SCH (09:40)
[2020-01-30] MEDS: PANTOPRAZOLE 20 MG TABLET PO SCH (09:40)
[2020-01-30] MEDS: THIAMINE HCL 100 MG TABLET (FP) PO SCH (09:40)
--- NOTE | 2020-01-30 15:02 | PN ---
Physical Exam: SUBJECTIVE: Patient seen and examined today, seen ambulating on his L leg against medical advice, however endorsing no pain. Patient far less aggrevated OBJECTIVE: Vital Signs Period Temp Pulse Resp BP Sys/[place] Pulse Ox Last 24 Hr 97.8 F-98.1 F 80-102 18-18 132-153/87-108 97-97 GENERAL: The patient is awake, alert, and fully oriented, in no acute distress. HEAD: Normal with no signs of trauma. EYES: PERRL, extraocular movements intact NECK: Trachea midline, full range of motion, supple. LUNGS: Breath sounds equal, clear to auscultation bilaterally, no wheezes, no crackles, no accessory muscle use. HEART: Regular rate and rhythm, S1, S2 without murmur, rub or gallop. ABDOMEN: Soft, nontender, nondistended, normoactive bowel sounds EXTREMITIES: 2+ pulses, warm, well-perfused, no edema. NEUROLOGICAL: Left Fibular fracture 2/2 fall 3 weeks ago. Normal speech, gait not observed. PSYCH: Normal mood, normal affect. SKIN: Warm, dry, normal turgor, no rashes or lesions noted Laboratory Results - last 24 hr CBC, BMP 01/30/20 05:40 01/30/20 05:40 Active Medications Generic Name Dose Route Start Last Admin Trade Name Freq PRN Reason Stop Dose Admin Chlordiazepoxide HCl 10 mg 01/31/20 05:00 Librium - PO 01/31/20 05:01 ONCE@0500 ONE Chlordiazepoxide HCl 10 mg 01/30/20 05:00 01/30/20 06:15 Librium - PO 01/30/20 17:01 10 mg Q12H FREDY Administration Enoxaparin Sodium 40 mg 01/30/20 10:00 01/30/20 09:39 Lovenox - SQ 40 mg DAILY FREDY Administration Folic Acid 1 mg 01/30/20 10:00 01/30/20 09:40 Folic Acid - PO 1 mg DAILY FREDY Administration Sodium Chloride 1,000 mls @ 75 mls/hr 01/29/20 20:27 01/29/20 20:29 Normal Saline - IV Not Given ASDIR FREDY Lorazepam 1 mg 01/30/20 12:44 Ativan Injection - IM Q6H PRN WITHDRAWAL(CONT SUBST) Methadone HCl 5 mg 01/31/20 06:00 Dolophine - PO 01/31/20 06:01 DAILY@0600 [facility] Nicotine Polacrilex 4 mg 01/29/20 20:27 01/29/20 22:59 Nicorette Gum - BUC 4 mg Q2H PRN Administration NICOTINE REPLACEMENT RX Pantoprazole Sodium 20 mg 01/30/20 10:00 01/30/20 09:40 Protonix - PO 20 mg DAILY FREDY Administration Thiamine HCl 100 mg 01/30/20 10:00 01/30/20 09:40 Vitamin B1 - PO 100 mg DAILY FREDY Administration ASSESSMENT/PLAN: 44yoM w/ PMHx of multisubstance abuse including alcohol, heroin, cocaine, and tobacco use 1/2 PPD, presented to the ED from [facility] 07/08 to alcoholic withdrawal Seizures. Additionally, he recently sustained a left fibular fracture 2/2 a fall from a seated position. In the ED he was given valium to control his seizures. Acute on Chronic Alcohol Withdrawal - Continue Librium protocol to reduce seizure activity - Ativan 1mg IM for breakthrough activity - Cont Thiamine and folate to prevent wernickes - Monitor and replete electrolytes as needed - Continue IV Fluid Heroin Withdrawal -Cont Methadone replacement: Currently day 4 of 5 -Monitor for signs of increased withdrawal Recent L Fibular Fracture - Per [facility] Orth[facility]ics: Ptn does not need surgery, transfer refused. - Distal L fibular fracture 2/2 fall from bed - Cast replaced by ortho today w/ soft cast. Toes can move and feel sensation. - Per PT and Ortho: Ptn is not stable on ambulation and should be NWB on LLE - Per Ortho (01/29): Will place hard cast tomorrow Transaminitis : -Likely 2/2 alcohol --> resolving -CK: Normalizing PPx -DVT PPx: Lovenox -GI PPx: Pantoprazol Goals of Care -Continue detox inpatient 2/2 L fibular fx -Transfer to [facility] following for continued rehab, Dr. Rodríguez spoken to already -Unlikely 2/2 fracture, ptn not able to ambulate and does not qualify -Per PT needs short term rehab. FEN: Fluids: NS Electrolytes: Monitor LFTs Nutrition: Regular Diet Visit type - Emergency Visit Emergency Visit: No - New Patient This patient is new to me today: No - Critical Care Critical Care patient: No - Discharge Referral Referred to [facility] No ATTENDING PHYSICIAN STATEMENT I saw and evaluated the patient. I reviewed the resident's note and discussed the case with the resident. I agree with the resident's findings and plan as documented. SUBJECTIVE: OBJECTIVE: ASSESSMENT AND PLAN:
[2020-01-30] MEDS: LORazepam 2 MG/ML SDV VIAL IM PRN ×2 (15:19→22:24)
--- NOTE | 2020-01-30 18:40 | PN ---
Teaching Attending Note Name of Resident: Kenny Orozco ATTENDING PHYSICIAN STATEMENT I saw and evaluated the patient. I reviewed the resident's note and discussed the case with the resident. I agree with the resident's findings and plan as documented. SUBJECTIVE: OBJECTIVE: Vital Signs Temperature 98 F 01/30/20 09:00 Pulse Rate 96 H 01/30/20 14:05 Respiratory Rate 20 01/30/20 14:05 Blood Pressure 143/105 H 01/30/20 14:05 O2 Sat by Pulse Oximetry (%) 97 01/30/20 09:00 PE; per resident's note CBCD WBC 7.2 K/mm3 (4.0-10.0) 01/30/20 05:40 RBC 4.35 M/mm3 (4.00-5.60) 01/30/20 05:40 Hgb 13.3 GM/dL (11.7-16.9) 01/30/20 05:40 Hct 38.8 % (35.4-49) 01/30/20 05:40 MCV 89.3 fl (80-96) 01/30/20 05:40 MCHC 34.2 g/dl (32.0-35.9) 01/30/20 05:40 RDW 13.1 % (11.9-15.9) 01/30/20 05:40 Plt Count 195 K/MM3 (134-434) 01/30/20 05:40 MPV 8.4 fl (7.5-11.1) 01/30/20 05:40 CMP Sodium 139 mmol/L (136-145) 01/30/20 05:40 Potassium 3.8 mmol/L (3.5-5.1) 01/30/20 05:40 Chloride 104 mmol/L (98-107) 01/30/20 05:40 Carbon Dioxide 23 mmol/L (21-32) 01/30/20 05:40 Anion Gap 12 MMOL/L (8-16) 01/30/20 05:40 BUN 13.0 mg/dL (7-18) 01/30/20 05:40 Creatinine 1.0 mg/dL (0.55-1.3) 01/30/20 05:40 Random Glucose 138 mg/dL (74-106) H 01/30/20 05:40 Calcium 8.7 mg/dL (8.5-10.1) 01/30/20 05:40 Total Bilirubin 0.7 mg/dL (0.2-1) 01/28/20 07:25 AST 40 U/L (15-37) H 01/28/20 07:25 ALT 62 U/L (13-61) H 01/28/20 07:25 Alkaline Phosphatase 67 U/L (45-117) 01/28/20 07:25 Total Protein 5.8 g/dl (6.4-8.2) L 01/28/20 07:25 Albumin 2.9 g/dl (3.4-5.0) L 01/28/20 07:25 CARDIAC ENZYMES Creatine Kinase 136 U/L (26-308) 01/28/20 07:25 Troponin I < 0.02 ng/ml (0.00-0.05) 01/26/20 19:02 Current Medications Generic Name Dose Route Start Last Admin Trade Name Freq PRN Reason Stop Dose Admin Chlordiazepoxide HCl 10 mg 01/31/20 05:00 Librium - PO 01/31/20 05:01 ONCE@0500 ONE Enoxaparin Sodium 40 mg 01/30/20 10:00 01/30/20 09:39 Lovenox - SQ 40 mg DAILY FREDY Administration Folic Acid 1 mg 01/30/20 10:00 01/30/20 09:40 Folic Acid - PO 1 mg DAILY FREDY Administration Sodium Chloride 1,000 mls @ 75 mls/hr 01/29/20 20:27 01/29/20 20:29 Normal Saline - IV Not Given ASDIR FREDY Lorazepam 1 mg 01/30/20 12:44 01/30/20 15:19 Ativan Injection - IM 1 mg Q6H PRN Administration WITHDRAWAL(CONT SUBST) Methadone HCl 5 mg 01/31/20 06:00 Dolophine - PO 01/31/20 06:01 DAILY@0600 FREDY Nicotine Polacrilex 4 mg 01/29/20 20:27 01/29/20 22:59 Nicorette Gum - BUC 4 mg Q2H PRN Administration NICOTINE REPLACEMENT RX Pantoprazole Sodium 20 mg 01/30/20 10:00 01/30/20 09:40 Protonix - PO 20 mg DAILY FREDY Administration Thiamine HCl 100 mg 01/30/20 10:00 01/30/20 09:40 Vitamin B1 - PO 100 mg DAILY FREDY Administration Home Medications Medication Instructions Recorded Chlordiazepoxide [Librium -] 10 mg PO Q12H capsule 01/28/20 Chlordiazepoxide [Librium -] 10 mg PO Q4H PRN capsule 01/28/20 Chlordiazepoxide [Librium -] 10 mg PO [id number] capsule 01/28/20 Chlordiazepoxide [Librium -] 25 mg PO Q4H PRN capsule 01/28/20 Chlordiazepoxide [Librium -] 25 mg PO [id number] capsule 01/28/20 Chlordiazepoxide [Librium -] 50 mg PO [id number] capsule 01/28/20 Folic Acid - 1 mg PO DAILY #30 tablet 01/28/20 Methadone [Dolophine -] 5 mg PO DAILY@0600 tablet 01/28/20 Methadone [Dolophine -] 10 mg PO DAILY@0600 tablet 01/28/20 Methadone [Dolophine -] 15 mg PO DAILY@0600 tablet 01/28/20 Thiamine HCl [Vitamin B1 -] 100 mg PO DAILY #30 tablet 01/28/20 ASSESSMENT AND PLAN: This patient is a 44yom with PMHx of Polysubstance abuse (Alcohol, Heroin, Cocaine), Tobacco use, withdrawal Seizures and recent Left tibia fracture . he was sent from [facility] for seizure like activity # ETOH withdrawal: continue Librium protocol , continue thiamine and Folate, will continue to monitor , last dose in am # MEthadone abuse/withdrawal : cont methadone detox # Seizure like activity: EEG and out pt follow up # Recent L Fib Fx: soft cast was replaced by ortho. NWB on LLE , crutches and PT , will discuss with orthopedic to have a harder cast placed # Transaminitis : due to alcohol . improving DVt px: Lovenox patient was denied by orthopedic group at [facility]. dc patient to rehab. vs home in am once patient is seen by orthopedic
[2020-01-30] MEDS: SODIUM CHLORIDE 1,000 ML IV SCH (22:24)
[2020-01-30] MEDS: NICOTINE POLACRILEX 2 MG GUM BUC PRN (23:14)
[2020-01-31] MEDS ORDERED: MELATONIN 5 MG TABLETS PO ONE (01:05)
[2020-01-31] MEDS: LORazepam 2 MG/ML SDV VIAL IM PRN (04:17)
[2020-01-31] MEDS ORDERED: chlordiazePOXIDE HCL 10 MG CAPSULE PO ONE ×2 (05:00)
[2020-01-31] MEDS ORDERED: PT OWN MED DRAWER 7, Y5N ONE ×2 (05:59→06:03)
[2020-01-31] MEDS ORDERED: METHADONE HCL 5 MG TABLET PO SCH ×2 (06:00)
[2020-01-31] MEDS: NICOTINE POLACRILEX 2 MG GUM BUC PRN (06:03)
[2020-01-31 06:50] VITALS: TEMP 98.3
[2020-01-31 06:55] LABS: BASO % 0.5 % (0-2.0); EOS % 2.1 % (0-4.5); HEMATOCRIT 38.3 % (35.4-49); HEMOGLOBIN 13.2 GM/dL (11.7-16.9); LYMPH % 20.3 % (8-40); MCH 30.5 pg (25.7-33.7); MCHC 34.4 g/dl (32.0-35.9); MEAN CELL VOLUME 88.7 fl (80-96); MEAN PLT VOLUME 8.1 fl (7.5-11.1); MONO % 6.2 % (3.8-10.2); NEUT % 70.9 % (42.8-82.8); PLATELET COUNT 199 K/MM3 (134-434); RBC 4.31 M/mm3 (4.00-5.60); RDW 13.1 % (11.9-15.9); WHITE BLOOD COUNT 8.8 K/mm3 (4.0-10.0)
[2020-01-31 07:23] LABS: BLOOD UREA NITROGEN 14.7 mg/dL (7-18); CALCIUM 8.7 mg/dL (8.5-10.1); CREATININE 1.1 mg/dL (0.55-1.3); POTASSIUM 3.8 mmol/L (3.5-5.1)
[2020-01-31] MEDS: PANTOPRAZOLE 20 MG TABLET PO SCH (10:07)
[2020-01-31] MEDS: FOLIC ACID 1 MG TABLET (FP) PO SCH (10:07)
[2020-01-31] MEDS: ENOXAPARIN NA (PORCINE) 40 MG/0.4 ML DISP.SYRIN SQ SCH (10:08)
[2020-01-31] MEDS: THIAMINE HCL 100 MG TABLET (FP) PO SCH (10:09)
[2020-01-31 10:24] VITALS: BP 131/90; PULSE 105
--- NOTE | 2020-01-31 11:19 | DS ---
Physical Exam: SUBJECTIVE: Patient seen and examined at bedside. No acute events reported overnight. Patient has no concerns or complaints this morning. Patient continues to ambulate on left leg OBJECTIVE: Vital Signs Period Temp Pulse Resp BP Sys/[place] Pulse Ox Last 24 Hr 98 F-98.3 F 96-116 17-20 118-152/52-105 96-100 PHYSICAL EXAM GENERAL: AAOx3, in no acute distress HEENT: NCAT, PERRLA, EOMI, sclera anicteric, conjunctiva clear, oropharynx clear w/o exudates. MMM. NECK: Normal ROM, supple, no lymphadenopathy, JVD, or masses LUNGS: CTABL no wheezes/ rhonchi/ rales. No distress, speaks in full sentences. No increased work of breathing. HEART: RRR, normal S1 S2, no M/R/G, peripheral pulses 2+ and equal b/l ABDOMEN: Soft, NTND, + BS. No guarding or rebound. No hepatomegaly or s plenomegaly. EXTREMITIES: Normal inspection. No peripheral edema. No clubbing or cyanosis. NEUROLOGICAL: CN II-XII intact. Normal speech, normal gait, no focal sensorimotor deficits. SKIN: Warm, Dry, normal turgor, no rashes or lesions noted LABS Laboratory Results - last 24 hr CBC, BMP 01/31/20 06:29 01/31/20 06:29 01/31/20 01/31/20 06:29 06:29 WBC 8.8 RBC 4.31 Hgb 13.2 Hct 38.3 MCV 88.7 MCH 30.5 MCHC 34.4 RDW 13.1 Plt Count 199 MPV 8.1 Absolute Neuts (auto) 6.3 Neutrophils % 70.9 Lymphocytes % 20.3 D Monocytes % 6.2 Eosinophils % 2.1 Basophils % 0.5 Nucleated RBC % 0 Sodium 137 Potassium 3.8 Chloride 103 Carbon Dioxide 27 Anion Gap 7 L BUN 14.7 Creatinine 1.1 Est GFR (CKD-EPI)AfAm 93.47 Est GFR (CKD-EPI)NonAf 80.64 Random Glucose 145 H Calcium 8.7 HOSPITAL COURSE: 44yoM w/ PMHx of multi-substance abuse including alcohol, heroin, cocaine, and tobacco use 1/2 PPD, presented to the ED from [facility] 2/ to alcoholic withdrawal Seizures. Additionally, he recently sustained a left fibular fracture 2/2 a fall from a seated position. In the ED he was given valium to control his seizures. During his stay he was on Librium protocol to reduce seizure activity with Ativan 1 Mg IM given for breakthrough activity for alcohol withdrawal. The patient was also given thiamine and folate to prevent Wernicke's encephalopathy. The patient was also given Methadone during his stay for heroin withdrawal. The patient had elevated liver enzymes during his stay, likely due to alcohol use, which started to down trend throughout his stay. A transfer to [place] was attempted due to his recent fibular fracture at the patient's request but this transfer was denied. The cast was replaced by orthopedics on the day of discharge with a hard cast and was recommended not to bear weight on that leg. Physical therapy also recommended not ambulating on the affected leg but the patient continued to ambulate on that leg. For prophylaxis the patient was given Lovenox for DVT prophylaxsis and Protonix for GI prophylaxsis. Patient completed detox and was discharged. Date of Admission:01/26/20 01/26/2020-Chest X-Ray-No acute chest pathology. No comparison studies. 01/26/2020-C Spine CT w/o Contrast-Mild degenerative arthritis with no fracture or acute pathology. Please see above discussion. 01/26/2020-Head CT w/o Contrast-Mild degenerative arthritis with no fracture or acute pathology. Please see above discussion. 01/27/2020-CR leg tib/fib left- 4 views of the left leg reveal some partial healing of a distal fibular fracture and stabilization of a calcaneal fracture with hardware. Examination is made through cast. Correlation recommended. There are no prior studies for comparison Date of Discharge: 01/31/20 Minutes to complete discharge: 36 Discharge Summary Problems reviewed: Yes Reason For Visit: UNCOMPLICATED ALCOHOL DEPENDENCE, SEIZURE Current Active Problems Alcohol dependence, uncomplicated (Chronic) Condition: Stable - Instructions Diet, Activity, Other Instructions: Your visit: You were admitted to the hospital from [facility] for alcohol and opioid withdrawal. You were found to have seizures and started on Librium to control the alcohol withdrawal and methadone to control the opioid withdrawal with im provements of your symptoms. You were additionally found to have a broken left femur and heel fracture due to a fall you sustained 3 weeks ago, orthopedic surgery evaluated your leg and casted it. At this time we recommend following up with orthopedics as an outpatient. You may follow up with your orthopedist at [facility] or the orthopedic surgeon you saw here, Dr. Flores. At this time you have been deemed medically cleared to be released from the hospital. Medications changes: -Continue to take thiamine 100mg daily and daily multivitamins -Continue to take all other home medications as prescribed. Follow up: - Please continue your management at [facility] upon discharge - Please follow up with Orthopedics at [facility] regarding definitive treatment, or Dr. Flores's office in [facility]. - Please follow up with Neurology (Dr. Camejo) for outpatient mangement of your seizure activity. - Visit with your Primary Care Provider in 2 weeks. If you do not have a primary care provider you may make an appointment at the [facility] clinic located at [address] [place] [address] ([phone]) with Dr. Agee. Additional Instructions: -You are being discharged home. -Please return to the Emergency Department if you experience worsening seizures, pain, fevers, chills, shortness of breath, or chest pain, or if you experience any new or concerning symptoms -Continue to engage in rehabilitation therapy and avoid alcohol and illegal drugs. Referrals: Cordell Camejo MD [Staff Physician] - Ron Agee MD [Staff Physician] - Antonio Flores MD [Staff Physician] - Paul Rodríguez DO [Staff Physician] - Disposition: HOME - Home Medications Comprehensive Discharge Medication List: Ambulatory Orders Folic Acid - 1 mg PO DAILY #30 tablet 01/28/20 Thiamine HCl [Vitamin B1 -] 100 mg PO DAILY #30 tablet 01/28/20 Multivitamin 1 each PO DAILY #30 tablet 01/31/20 This patient is new to me today: Yes Date on this admission: 01/31/20 Emergency Visit: No Critical Care patient: No - Discharge Referral Referred to [facility] Med [facility].C[facility] No ATTENDING PHYSICIAN STATEMENT I saw and evaluated the patient. I reviewed the resident's note and discussed the case with the resident. I agree with the resident's findings and plan as documented. SUBJECTIVE: OBJECTIVE: ASSESSMENT AND PLAN:
--- NOTE | 2020-01-31 11:23 | PN ---
Progress Note (short form) - Note Progress Note: 44 year old male history of polysubstance abuse, he was in detox at [facility]. Pateint has multiple seizure and ct head it was negative. HE also have fibula fracture . Patient has been drinking everyday for few days. He has history of polysubstance abuse. He has seizure in 2006 and was not treated with AED, he was given klonipin. Patinet is alert and feeling anxious . He is being given ativan prn. chart reviewed, events noted. THere is no episode overnight. He may get his eeg today. Being transferred to med-surg. no new complain and patient is being discharged home. NEUROLOGICAL EXAMINATION Alert oriented x 3, speech is normal afebrile, neck is supple eomi, pupils reactive no face asymmetry moving all ext sensation is normal reflex are normal ct head unremarkable eeg is pending mri is not needed. Assessment/Plan 44 year old male history of polysubstance abuse and has been drinking heavy before coming to rehab and had seizure , likely to be alcohol withdrawal related. neuro exam unremarkable, there is no episode today. Plan:; seizure precautions - no need for AED , no need mri of brain - continue ativan prn - eeg on or outpatient Thanking you so much Cordell Camejo MD
--- NOTE | 2020-01-31 11:48 | PN ---
Progress Note (short form) - Note Progress Note: Ortho Pt seen and examined. d/w hospitalist and will place cast on left LE. Selected Entries 01/31/20 10:00 Temperature 98.3 F Pulse Rate 105 H Respiratory 18 Rate Blood Pressure 131/90 + swelling, + ttp, decr rom, nvi a/p well padded cast applied NON WEIGHT BEARING with walker or crutches elevation ok to d/c from ortho pov pt will f/u with [facility] clinic upon d/c Pt understands and agrees with plan d/w Dr. Teixeira
--- NOTE | 2020-01-31 14:21 | PN ---
Teaching Attending Note Name of Resident: Kenny Orozco ATTENDING PHYSICIAN STATEMENT I saw and evaluated the patient. I reviewed the resident's note and discussed the case with the resident. I agree with the resident's findings and plan as documented. SUBJECTIVE: Patient is feeling better with NAD OBJECTIVE: Vital Signs Temperature 98.3 F 01/31/20 10:00 Pulse Rate 105 H 01/31/20 10:00 Respiratory Rate 18 01/31/20 10:00 Blood Pressure 131/90 01/31/20 10:00 O2 Sat by Pulse Oximetry (%) 96 01/31/20 10:00 PE; per resident's note CBCD WBC 8.8 K/mm3 (4.0-10.0) 01/31/20 06:29 RBC 4.31 M/mm3 (4.00-5.60) 01/31/20 06:29 Hgb 13.2 GM/dL (11.7-16.9) 01/31/20 06:29 Hct 38.3 % (35.4-49) 01/31/20 06:29 MCV 88.7 fl (80-96) 01/31/20 06:29 MCHC 34.4 g/dl (32.0-35.9) 01/31/20 06:29 RDW 13.1 % (11.9-15.9) 01/31/20 06:29 Plt Count 199 K/MM3 (134-434) 01/31/20 06:29 MPV 8.1 fl (7.5-11.1) 01/31/20 06:29 CMP Sodium 137 mmol/L (136-145) 01/31/20 06:29 Potassium 3.8 mmol/L (3.5-5.1) 01/31/20 06:29 Chloride 103 mmol/L (98-107) 01/31/20 06:29 Carbon Dioxide 27 mmol/L (21-32) 01/31/20 06:29 Anion Gap 7 MMOL/L (8-16) L 01/31/20 06:29 BUN 14.7 mg/dL (7-18) 01/31/20 06:29 Creatinine 1.1 mg/dL (0.55-1.3) 01/31/20 06:29 Random Glucose 145 mg/dL (74-106) H 01/31/20 06:29 Calcium 8.7 mg/dL (8.5-10.1) 01/31/20 06:29 Total Bilirubin 0.7 mg/dL (0.2-1) 01/28/20 07:25 AST 40 U/L (15-37) H 01/28/20 07:25 ALT 62 U/L (13-61) H 01/28/20 07:25 Alkaline Phosphatase 67 U/L (45-117) 01/28/20 07:25 Total Protein 5.8 g/dl (6.4-8.2) L 01/28/20 07:25 Albumin 2.9 g/dl (3.4-5.0) L 01/28/20 07:25 CARDIAC ENZYMES Creatine Kinase 136 U/L (26-308) 01/28/20 07:25 Troponin I < 0.02 ng/ml (0.00-0.05) 01/26/20 19:02 Home Medications Medication Instructions Recorded Thiamine HCl [Vitamin B1 -] 100 mg PO DAILY #30 tablet 01/28/20 Multivitamin 1 each PO DAILY #30 tablet 01/31/20 ASSESSMENT AND PLAN: This patient is a 44yom with PMHx of Polysubstance abuse (Alcohol, Heroin, Cocaine), Tobacco use, withdrawal Seizures and recent Left tibia fracture . he was sent from [facility] for seizure like activity # ETOH withdrawal: completed Librium protocol , will dc him on thiamine and multivitamin Folate, last dose this morning # MEthadone abuse/withdrawal : completed detox # Seizure like activity: EEG and out pt follow up # Recent L Fib Fx: soft cast was replaced by ortho.to hard cast, NWB on LLE , crutches and PT , also ordered opne shoe for him # Transaminitis : improved DVt px: Lovenox patient was denied by orthopedic group at [facility]. dc patient home
== END 2020-01-31 11:47 | disposition home or self-care (01) | DRG 773 ==
LOC: JER 17:09 → JERBED 23:01 → J4W 01-27 05:05
PROVIDERS: ADMIT Internal Medicine; ATTEND Internal Medicine
PROC: HZ2ZZZZ Detoxification Services for Substance Abuse Treatment (ICD-10-PCS; principal; 2020-01-26)
PROC: 2W0RX1Z Change Splint on Left Lower Leg (ICD-10-PCS; 2020-01-27)
DX: F10.239 Alcohol dependence with withdrawal, unspecified (principal); S82.402A Unspecified fracture of shaft of left fibula, initial encounter for closed fracture; S92.002A Unspecified fracture of left calcaneus, initial encounter for closed fracture; R56.9 Unspecified convulsions; F11.23 Opioid dependence with withdrawal; F19.10 Other psychoactive substance abuse, uncomplicated; E66.9 Obesity, unspecified; Z68.36 Body mass index [BMI] 36.0-36.9, adult; I45.10 Unspecified right bundle-branch block; D72.829 Elevated white blood cell count, unspecified; F17.210 Nicotine dependence, cigarettes, uncomplicated; W18.39XD Other fall on same level, subsequent encounter
CPT/HCPCS: 36415; 70450-TC; 71045-TC-FY; 72125-TC; 73590-TC-LT-FY; 80048; 80053; 80076; 80307; 81003; 82550; 82553; 83735; 84100; 84132; 84484; 85025; 97116-GP; 97162-GP; 99285-25; U0003